=== PATIENT | female | born 1980 | race Caucasian/White ===

== ENCOUNTER 2020-04-08 01:03 | Outpatient (CLI) | payer BC, SELFPAY ==
[2020-04-08 20:05] LABS: SARS-CoV-2 RNA PCR Negative
== END 2020-04-08 01:04 | disposition home or self-care (01) ==
LOC: ANHCOVIDDT 01:04
PROVIDERS: PCP Physician Assistant; Visit Provider Orthopaedic Surgery
DX: Z01.812 Encounter for preprocedural laboratory examination (principal); Z11.59 Encounter for screening for other viral diseases
CPT/HCPCS: 87635; C9803; U0003

== ENCOUNTER 2020-04-11 01:32 | Day surgery (SDC) | payer BC, SELFPAY ==
[2020-03-29 12:23] VITALS: BMI 31.8
--- NOTE | 2020-04-10 13:17 | WPDANESEPP ---
Anes - Eval Pre Procedure Procedure: Operation Date: 04/11/20 07:30 Proposed Procedures p Right Hallux Cheilectomy - Jam Plummer MD Date/Time: 04/10/20 13:17 Pre Op Diagnosis: Rigth Hallux Rigidus Patient Data Age: 39 Gender: F Height: 1.6 m Weight: 81.65 kg Allergies Allergy/AdvReac Type Severity Reaction Status Date / Time aspirin Allergy Mild Nausea and Verified 03/29/20 12:24 Vomiting Penicillins Allergy Unknown UNKNOWN Verified 03/29/20 12:24 REACTION- OCCURED CHILD Home Medications Medication Instructions Recorded Confirmed Type ascorbic acid-collagen [Collagen 1 cap PO DAILY 03/29/20 03/29/20 History Plus Vitamin C] pediatric multivitamin no.30 1 tablet PO DAILY 03/29/20 03/29/20 History [Gummies Children Multivitamin] Patient hx anesthesia problems: none Family hx anesthesia problems: none PMFSH Past Medical History Medical History Anxiety Asthma Bilateral knee pain Chronic headaches Depression Hallux rigidus of right foot Patella-femoral syndrome Smoking history Surgical History Surgical History History of carpal tunnel release Family History Family History Unknown Hypertension Arthritis Cancer Social History Social History Smoking packs per day: 2 Smoking cigarettes per day: 40.0 Years smoked: 26 Smoking pack-years: 52.00 Smoking status: Former smoker Tobacco type: e-cigarettes/vaping Additional smoking assessment comments: QUIT 1.5 YEARS AGO Alcohol intake: current Substance use type: marijuana Spiritual care concerns: No Exam Day of Procedure 04/10/20 13:17
[2020-04-11] VITALS (9 sets, daily range): BP systolic 103–129; BP diastolic 59–87; PULSE 67–90; RESP 8–16; TEMP 36.3–36.8; O2SAT 99–100
--- NOTE | ~2020-04-11 | XR_ITS ---
EXAMINATION: XR surgery orthopedic EXAM DATE: 04/11/2020 08:32 INDICATION: Hallux surgery. TECHNIQUE: Fluoroscopy used during XR surgery orthopedic performed by Dr. Jam Plummer MD. The DAP for this procedure was 0.6 cGycm2. FINDINGS: Frontal and lateral projections of the 1st digit were captured. There is some subcutaneous gas, probably some gas within the 1st MTP joint. Alignment is anatomic. Correlate with procedure no te. IMPRESSION: Fluoroscopy used during XR surgery orthopedic. Reviewed, dictated and finalized at location A.
--- NOTE | 2020-04-11 07:00 | WPDHPUPDATE1 ---
History and Physical Update Update Date/Time: 04/11/20 07:00 History and Physical has been reviewed, including an updated exam of the patient. There are NO changes in the patient's condition. Covid test negative. Risks, benefits, and alternatives have been discussed and questions answered. Patient agrees to proceed with procedure.
--- NOTE | 2020-04-11 07:01 | WPDANESEFPP ---
Anes - Eval Final PreProcedure Day of Procedure 04/11/20 07:01 Patient weight: obese Heart: regular rate and rhythm Lungs: clear to auscultation and normal air movement Airway: Mallampati scale class II Neurological: alert and oriented Last oral intake: >/= 8 hours ASA classification: III Emergent: no Anesthetic plan: proceed Anesthesia type and monitoring: general LMA and standard monitoring Informed Consent: The patient's anesthetic plan and its attendant risks and benefits were discussed with the patient/family/POA. Questions were solicited and answers provided to the satisfaction of the patient/family/POA.
[2020-04-11] MEDS: LACTATED RINGERS 1,000 ML 30 ML IV CONT (07:10)
[2020-04-11] MEDS: ACETAMINOPHEN 500 MG TABLET 1000 MG PO (07:15)
[2020-04-11] MEDS: KETOROLAC 15 MG/ML VIAL (*BKC) IV PUSH (07:15)
[2020-04-11] MEDS: ceFAZolin 2 GM/D5W 50 ML 2 GM/50 ML BAG IVPB (07:27)
--- NOTE | 2020-04-11 08:36 | P.OP_ITS ---
Procedure Note - Detailed Date of procedure: 04/11/20 Pre-op diagnosis: Rigth Hallux Rigidus Post-op diagnosis: same Procedure performed: RT hallux cheilectomy Description of procedure: Indications: Patient is a 39yo woman with right hallux rigidus. Severe pain the hallux metatarsophalangeal joint area, worse with weight-bearing. Patient has failed conservative treatment with custom inserts, accommodative shoes, activity modifications anti-inflammatory medication and injections. Presents now for operative treatment. What was done: Patient identified in the preoperative holding. Informed consent given. Operative extremity marked. Patient received intravenous antibiotics. Patient brought to the operating room where underwent general anesthetic by anesthesia team. Positioned supine on operating room table. Time-out performed confirming the patient, site of the surgery and the plan. Right foot prepped and draped in the usual sterile surgical fashion using a ChloraPrep skin solution. Foot was exsanguinated with an Esmarch bandage and a calf tourniquet was inflated to 225 mmHg. Longitudinal incision made over the dorsum of the hallux metatarsophalangeal joint with a 15 blade knife. Hemostasis controlled with electrocautery. Dorsal capsulotomy performed and reflected off the medial lateral aspect of the distal 1st metatarsal. Joint was exposed and large dorsal osteophyte as well as erosion of the dorsal portion of the metatarsal articular surface noted. Osteotomes used to resect the exostosis as well as the degenerative portions of the metatarsal head. Adequate resection level checked with image intensification. Wound thoroughly irrigated antibiotic solution. Dorsal osteophyte from the proximal phalanx also removed with rongeur. Bone wax used to cover the exposed bone surface. Capsulotomy repaired with 2 Vicryl interrupted suture. Subcutaneous tissue repaired with 3 0 Monocryl interrupted suture and skin repaired with 4 O nylon running suture. Sterile dressing applied. Tourniquet released and good capillary refill in all toes ensured. The patient was then woken from anesthesia, extubated and taken to the recovery room in stable condition. All sponge, needle, instrument counts were correct at the end of the case. Anesthesia: GLMA Surgeon: Jam Plummer MD Thermograph Operator: personal banking assistant Estimated blood loss (mL): 5 Tourniquet time (min): 35 Drains: No Packing: No Pathology: none sent Complications: None Condition: stable Disposition: PACU
== END 2020-04-11 10:30 | disposition home or self-care (01) ==
PROVIDERS: Visit Provider Orthopaedic Surgery
PROC: (CPT 28289; principal; 2020-04-11 07:30)
DX: M20.21 Hallux rigidus, right foot (principal); Z87.891 Personal history of nicotine dependence
CPT/HCPCS: 28289; A9270; J0690; J1885; J2250; J3010; J7120

== ENCOUNTER → 2020-08-18 11:49 | Outpatient (CLI) | payer BC, SELFPAY ==
--- NOTE | ~2020-08-18 | MR_ITS ---
EXAMINATION: MR knee LT wo con DATE: 08/18/2020 12:59 INDICATION: Left knee pain TECHNIQUE: Magnetic resonance imaging (MRI) of the left knee was performed without intravenous contra st. Sequences included coronal PD-weighted FSE, coronal PD-weighted FS FSE, sagittal T2-weighted FSE , sagittal PD-weighted FS FSE and axial PD weighted fat saturated FSE. COMPARISON: None. FINDINGS: Medial compartment: Medial meniscus is normal. At the lateral side of the anterior most weightbearing medial femoral cond yle there is a small region with mild irregularity to the surface of both the cartilage as well as th e underlying articular cortex. There is curvilinear low signal intensity underlying the articular cor vasquez with minimal surrounding edema. Differential would include a chronic osteochondral lesion, healin g subacute impaction or stress fracture. More reactive bone changes related to overlying high-grade c hondromalacia. Remaining cartilage in the medial compartment appears relatively preserved. Lateral compartment: Lateral meniscus is normal. Articular cartilage is normal. Patellofemoral compartment: Partial-thickness cartilage loss and fissuring at the medial patellar facet with tiny focus of underl deshaun subarticular edema at the central aspect of the medial patellar facet. Trochlear cartilage is no rmal. Ligaments and tendons: Anterior and posterior cruciate ligaments are normal. The medial collateral ligament and fibular reggie ateral ligament complex are normal. The extensor mechanism is normal. The visualized medial and later al hamstring tendons as well as the iliotibial band are normal. Fluid: Physiologic amount of fluid in the joint space. No loose osteochondral bodies identified. There is a ganglion cyst which extends approximately 3.5 cm proximally along the posterior margin of the medial head of the gastrocnemius which measures up to 12 x 9 mm in maximal orthogonal dimensions. Osseous/other: Signal intensity bone islands at the posterior weightbearing lateral femoral condyle and at the anter ior aspect of the lateral tibial plateau. No pathologic marrow replacing process. IMPRESSION: 1. Small region at the anterolateral aspect of the weightbearing medial femoral condyle demonstrating cartilage and cortical irregularity and edema and linear sclerosis with differential including react frank bone changes related to overlying high-grade chondromalacia, an osteochondral lesion or healing s ubacute impaction or stress fracture. 2. 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 FILLER IMPRESSION: 1. Small region at the anterolateral aspect of the weightbearing medial femoral condyle demonstrating cartilage and cortical irregularity and edema and linear sclerosis with differential including reactive bone changes related to overlyi ng high-grade chondromalacia, an osteochondral lesion or healing subacute impac tion or stress fracture. 2. 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
== END ==
PROVIDERS: Visit Provider Nurse Practitioner Family
DX: M25.562 Pain in left knee (principal)
CPT/HCPCS: 73721

== ENCOUNTER 2021-04-02 00:26 | Emergency (ER) | payer BC, SELFPAY ==
--- NOTE | ~2021-04-02 | XR_ITS ---
EXAMINATION: XR foot RT min 3V DATE: 04/02/2021 01:00 INDICATION: Right foot pain TECHNIQUE: Dorsoplantar, lateral, and 2 oblique views of the right foot were obtained. COMPARISON: 04/13/2020 FINDINGS: There is a subtle lucency in the medial aspect of the navicular bone with adjacent soft tis charanjit swelling. Bone alignment is normal. A plantar calcaneal enthesophyte is noted. IMPRESSION: 1. Subtle lucency in the medial aspect of the navicular suggestive of nondisplaced fracture. Reviewed, dictated and finalized at location A. IMPRESSION: 1. Subtle lucency in the medial aspect of the navicular suggestive of nondispla elder fracture.
--- NOTE | ~2021-04-02 | XR_ITS ---
EXAMINATION: XR ankle RT min 3V INDICATION: Right ankle pain TECHNIQUE: Four views of the right ankle are obtained. COMPARISON: None available FINDINGS: There is ankle soft tissue swelling. Bone alignment is normal. There is no fracture. A plan tar calcaneal enthesophyte is noted. IMPRESSION: 1. Ankle soft tissue swelling without acute osseous abnormality. Reviewed, dictated and finalized at location A.
[2021-04-02 00:38] VITALS: BP 154/80; PULSE 96; RESP 18; TEMP 36.6; O2SAT 98
--- NOTE | 2021-04-02 00:45 | ED.GENADULT ---
HPI - General Adult General Chief complaint: Extremity Injury, Lower Stated complaint: sprained ankle Time Seen by Provider: 04/02/21 00:35 History of Present Illness HPI narrative: Patient 40-year-old female presents emerged from with chief complaint of right ankle and right foot pain. Patient reports that she was walking down the steps fell twisted her ankle and reports that she has pain on the medial and lateral malleolus as well as the base the fifth metatarsal. Patient states she wrapped it with an Kendall wrap but reports it hurts whenever she tries to put pressure on her foot and she try to go to work this evening and was unable to put weight on her ankle. Patient states that she did not injure herself anywhere else denies loss of consciousness denies head injury. Patient denies any laceration. Related Data Home Medications Medication Instructions Recorded Confirmed Collagen Plus Vitamin C 1 cap PO DAILY 03/29/20 08/09/20 Gummies Children Multivitamin 1 tablet PO DAILY 03/29/20 08/09/20 ibuprofen 800 mg tablet 800 mg PO Q6H 04/29/20 08/09/20 Allergies Allergy/AdvReac Type Severity Reaction Status Date / Time aspirin Allergy Mild Nausea and Verified 08/18/20 11:48 Vomiting Penicillins Allergy Unknown UNKNOWN Verified 08/18/20 11:48 REACTION- OCCURED CHILD Review of Systems Review of Systems: Narrative: A 10 system review of systems was completed on the patient and is negative except for what is stated in the HPI. Nursing and ancillary documentation was reviewed. [facility] Past Medical History Medical History Acute pain of left knee Anxiety Asthma Bilateral knee pain Chronic headaches Depression Hallux rigidus of right foot Patella-femoral syndrome Smoking history Tear meniscus knee Surgical History Surgical History History of carpal tunnel release Family History Family History Unknown Hypertension Arthritis Cancer Social History Social History Smoking packs per day: 2 Smoking cigarettes per day: 40.0 Years smoked: 26 Smoking pack-years: 52.00 Smoking status: Current every day smoker Tobacco type: e-cigarettes/vaping Additional smoking assessment comments: QUIT 1.5 YEARS AGO Alcohol intake: current Alcohol use details: Occasional Substance use type: marijuana Spiritual care concerns: No Exam Narrative: Exam Narrative: GENERAL: Well-appearing, well-nourished, and in no acute distress. HEAD: Normocephalic, atraumatic. EYES: PERRLA and EOMI. ENT: Nares clear, no rhinorrhea or epistaxis. Mucous membranes moist. NECK: Supple. CHEST: Clear to auscultation. No respiratory distress. HEART: Regular rate and rhythm. No murmur heard. Normal peripheral pulses. ABDOMEN: Soft, nontender, nondistended, normal active bowel sounds. EXTREMITIES: Normal range of motion. No edema. There is tenderness to palpation in the medial and lateral malleolus as well as the base of the fifth metatarsal of the right foot SKIN: Warm, dry, no rash. NEURO: No focal deficits. Alert and oriented x3. PSYCH: Normal mood and affect. Course Vital Signs Vital signs: Vital Signs Temperature 36.6 C 04/02/21 00:38 Pulse Rate 96 04/02/21 00:38 Respiratory Rate 18 04/02/21 00:38 Blood Pressure 154/80 H 04/02/21 00:38 Pulse Oximetry 98 04/02/21 00:38 Temperature 36.6 C 04/02/21 00:38 Pulse Rate 96 04/02/21 00:38 Respiratory Rate 18 04/02/21 00:38 Blood Pressure 154/80 H 04/02/21 00:38 Pulse Oximetry 98 04/02/21 00:38 Medical Decision Making Vital Signs Vital Signs: Vital Signs Temperature 36.6 C 04/02/21 00:38 Pulse Rate 96 04/02/21 00:38 Respiratory Rate 18 04/02/21 00:38 Blood Pres
[2021-04-02] MEDS: IBUPROFEN 400 MG TABLET 800 MG PO (01:37)
== END 2021-04-02 01:36 | disposition home or self-care (01) ==
PROVIDERS: Emergency Provider Emergency Medicine
DX: S93.401A Sprain of unspecified ligament of right ankle, initial encounter (principal); S93.601A Unspecified sprain of right foot, initial encounter; J45.909 Unspecified asthma, uncomplicated; Z87.891 Personal history of nicotine dependence; W10.9XXA Fall (on) (from) unspecified stairs and steps, initial encounter; X50.9XXA Other and unspecified overexertion or strenuous movements or postures, initial encounter
CPT/HCPCS: 73610; 73630; 99283; A9270

== ENCOUNTER → 2023-09-13 11:19 | Outpatient (CLI) | payer BC, SELFPAY ==
--- NOTE | ~2023-09-13 | US_ITS ---
EXAMINATION: US thyroid DATE: 09/13/2023 11:42 INDICATION: Thyroid nodules TECHNIQUE: Multiple ultrasound images of the thyroid were obtained. COMPARISON: None. FINDINGS: The right thyroid lobe measures 5.2 x 2.1 x 2.5 cm. The left thyroid lobe measures 5.5 x 1.5 x 1.8 c m. 1.3 cm mixed solid and cystic nodule with hypoechoic solid component which is wider than tall wit h smooth margins but with internal echogenic foci (TI-RADS 4, moderately suspicious , FNA if >=1.5 cm , annual followup is >=1 cm) in the inferior left thyroid. There is a 9 mm TI RADS 4 nodule with jose lar imaging features at the inferior right thyroid lobe. 2.0 cm predominantly cystic anechoic nodule with peripheral a couple small peripheral hypoechoic solid components and echogenic focus with plane captain ior comet tailing consistent with inspissated colloid (TI-RADS 1, benign, no FNA recommended). Additi onal TI RADS 1 anechoic cystic nodules measuring 4 mm at the inferior left thyroid and 10 mm at the i nferior left thyroid. Finally in the right thyroid there is a 6 mm TI RADS 4 nodule at the mid right thyroid with peripheral rim shadowing calcification which obscures the more posterior portion of the nodule. IMPRESSION: 1. Multinodular goiter with a few TI RADS 4 nodules, the largest measuring 1.3 cm for which annual ul trasound follow-up would be recommended. Reviewed, dictated and finalized at location A. D/OSTOMY CLINICAL NURSE SPECIALIST IMPRESSION: 1. Multinodular goiter with a few TI RADS 4 nodules, the largest measuring 1.3 cm for which annual ultrasound follow-up would be recommended.
== END ==
PROVIDERS: PCP Obstetrics & Gynecology; Visit Provider Obstetrics & Gynecology
DX: E04.2 Nontoxic multinodular goiter (principal)
CPT/HCPCS: 76536

== ENCOUNTER → 2023-10-24 09:49 | Outpatient (CLI) | payer BC, SELFPAY ==
--- NOTE | ~2023-10-24 | MM_ITS ---
EXAMINATION: MM screening fareed BI w marley HISTORY: Screening mammogram TECHNIQUE: Craniocaudal and mediolateral oblique 3-D tomosynthesis images were obtained and synthetic 2-D images were generated. CAD analysis was submitted and interpreted. COMPARISON: No prior mammogram is available for comparison at this institution. BREAST PARENCHYMAL COMPOSITION: There are scattered areas of fibroglandular density. FINDINGS: There is no evidence of suspicious mass, calcification, or architectural distortion to sugg est malignancy in either breast. There has been no suspicious interval change. IMPRESSION: 1. No mammographic evidence of malignancy. 2. Recommend routine screening mammography in one year. BI-RADS Category 1: Negative Reviewed, dictated and finalized at location A. CIATE APPLICATION DEVELOPER
== END ==
PROVIDERS: PCP Obstetrics & Gynecology; Visit Provider Obstetrics & Gynecology
DX: Z12.31 Encounter for screening mammogram for malignant neoplasm of breast (principal)
CPT/HCPCS: 77063; 77067

== ENCOUNTER 2024-10-26 09:49 | Outpatient (CLI) | payer BC, SELFPAY ==
--- NOTE | ~2024-10-26 | MM_ITS ---
EXAMINATION: MM screening fareed BI w marley HISTORY: Screening TECHNIQUE: Craniocaudal and mediolateral oblique 3-D tomosynthesis images were obtained and synthetic 2-D images were generated. CAD analysis was submitted and interpreted. COMPARISON: No prior mammogram is available for comparison at this institution. BREAST PARENCHYMAL COMPOSITION: Not dense: There are scattered areas of fibroglandular density. FINDINGS: There is no evidence of suspicious mass, calcification, or architectural distortion to sugg est malignancy in either breast. There has been no suspicious interval change. IMPRESSION: 1. No mammographic evidence of malignancy. 2. Recommend routine screening mammography in one year. BI-RADS Category 1: Negative Reviewed, dictated and finalized at location B. SM TUTOR
== END 2024-10-26 09:50 | disposition home or self-care (01) ==
LOC: MICIMG 09:50
PROVIDERS: PCP Obstetrics & Gynecology; Visit Provider Obstetrics & Gynecology
DX: Z12.31 Encounter for screening mammogram for malignant neoplasm of breast (principal)
CPT/HCPCS: 77063; 77067

== ENCOUNTER 2024-12-12 11:32 | Outpatient (CLI) | payer BC, SELFPAY ==
--- OUTSIDE RECORDS SUMMARY | 2024-12-12 11:36 | XMS_ITS | Data Portability ---
Author Organization [facility] [place] Address [address] [place] [address] Care Team Providers Care Fur Comber Name Role Phone KALEEBREE Primary Care Provider Assessment Encounter Date Assessment Date Assessment LastModified by Organization Details LastModified Time 01/07/2023 01/07/2023 Pt also mentioned she is struggling to lose weight. Referred to Dr Alvarez. [email or web address] Not available 01/07/2023 16:42:04 Plan of Treatment Reminders Order Date Submit Date Provider Last Modified By Organization Details Last Modified Time Details Appointments None recorded. Lab HbA1c (hemoglobin A1c), blood 2022 023 [facility] (Lab), [address] [facility], [place], [address], 3 04:54:14 Referral None recorded. Procedures None recorded. Surgeries None recorded. Imaging None recorded. Medication Orders phentermine 15 mg capsule 2022 023 [facility]/Pharmacy #[id number], [address], [place], [address], 3 11:04:04 topiramate 50 mg tablet [address]/Pharmacy #[id number], [address], [place], [address], 3 12:52:52 Patient TargetsNo targets recorded. Patient InstructionsNo instructions recorded. Reason for Referral None Reported. Results Created Date Observation Date Name Description Value Unit Range Abnormal Flag Note LastModifiedBy Organization Detail LastModifiedTime 01/08/20 23 01/07/2023 CT/GC (ALBIN) , SWAB chlamydia trachomatis, PCR Negati ve negati ve Not Available [facility] (Lab) [address] [facility], [place], [address], 01/08/2023 21:19:44 01/08/20 23 01/07/2023 CT/GC (ALBIN) , SWAB neisseria gonorrhoeae, PCR Negati ve negati ve Not Available [facility] (Lab) [address] [facility], [place], [address], 01/08/2023 21:19:44 01/08/20 23 01/07/2023 VAGIN ITIS/ VAGIN OSIS, DNA PROBE ligia sp. detection, direct probe Negati ve negati ve Not Available [facility] (Lab) [address] [place], [address], 01/08/2023 21:19:44 01/08/20 23 01/07/2023 VAGIN ITIS/ VAGIN OSIS, DNA PROBE gardnerella vag. detection, direct probe Positi ve negati ve abnormal Not Available [facility] (Lab) [address] [facility], [place], [address], 01/08/2023 21:19:44 01/08/20 23 01/07/2023 VAGIN ITIS/ VAGIN OSIS, DNA PROBE trichomonas vag. detection, direct probe Negati ve negati ve Not Available [facility] (Lab) [address] [place], [address], 01/08/2023 21:19:44 03/07/20 23 03/07/2023 HEMOG LOBIN A1C hemoglobin A1C 5.3 % 0-5.6 The Ameri can [employer] [place] [employer] i[employer] n recom mends that a prima ry goal of thera py mart d be a HBA1C of < 7% and that physi cians shoul d reeva luate the treat ment regim en in patie nts with HBA1C value s consi stent ly > 8%. <5.7% Trina l 5.7 - 6.4% Incre ased risk for diabe [place] >=6.5 % Diagn ostic of diabe [place] <7.0% Goal of thera py >8.0% Actio n sugge sted Not Available [facility] (Lab) [address], [place], [address], 03/08/2023 04:54:13 Result Notes None recorded. Procedures Surgical History Date Name Laterality Status Provider Name and Address Organization Details Recorded Time 0 procedure on foot completed [facility] 01/07/2023 17:31:18 8 excision of cyst of epididymis completed [facility] 01/07/2023 17:32:29 [address] surgery completed [facility] 01/07/2023 17:30:23 0 Carpal tunnel surgery completed [facility] 01/07/2023 17:30:[address] [facility] 01/07/2023 17:15:[address] [facility] 03/05/2023 10:04:31 Imaging Results None recorded. Procedure Notes None recorded. Medical Equipment None Reported. Allergies Allergen ID Allergen Name Allergen Category Reaction Reaction Severity Criticality Documentation Date Start Date Code Code System Note Provider Name and Address Organization Details Recorded Time Product containin g penicilli n (product) medicatio n Not available Not available Not available 01/07/2023 82721 8001 SNOMED Gr[facility] 3 10:04:42 aspirin medicatio n Not available Not available Not available 01/07/2023 1191 RxNorm Gr[facility] 3 10:04:46 26213 Jennifer Aspirin medicatio n nausea Not available Not available 03/05/2023 84932 8 RxNorm Gracie Pathak [facility] 3 10:03:47 86735 Penicilli n Not available Not available Not available Not available 03/05/2023 81355 RxNorm Gracie Pathak [facility] 3 10:03:47 Medications Name Sig Start Date Stop Date Status Note LastModified by Organization Details LastModified Time meloxicam 15 mg tablet active Not Available Not Available Not Available phentermine 15 mg capsule TAKE 1 CAPSULE BY MOUTH EVERY DAY 2022 active Not Available Not Available Not Avai lable metronidazole 500 mg tablet TAKE 1 TABLET BY MOUTH TWICE A DAY FOR 7 DAYS active Not Available Not Available No t Available meloxicam 7.5 mg tablet active Not Available Not Available No t Available methylprednisol one 4 mg tablets in a dose pack active Not Available Not Available No t Available topiramate 50 mg tablet TAKE 1 TABLET BY MOUTH TWICE A DAY 2022 active Not Available Not Available Not Avai lable meloxicam active Not Available Not Daija ilable Not Available Metronidazole (Topical) active Not Available Not Available No t Available Seglentis 44 mg-56 mg tablet TAKE 1 TABLET BY MOUTH TWICE A DAY NEEDED FOR PAIN active Not Available Not Available No t Available Vitals Date Recorded Body height Body mass index (BMI) Body weight Systolic blood pressure Diastolic blood pressure Provider Name and Address Organization Details Last Updated DateTime 01/07/2023 160.02 cm 31.4 kg/m2 16484.85 g 130 mm[Hg] 88 mm[Hg] Awilda Raymond [facility] 3 17:07:09 Date Recorded Body height Body mass index (BMI) Body weight Systolic blood pressure Diastolic blood pressure Provider Name and Address Organization Details Last Updated DateTime 03/05/2023 160.02 cm 31.2 kg/m2 48092.26 g 119 mm[Hg] 74 mm[Hg] Gracie Pathak [facility] 3 10:15:34 Social History Question Answer Notes LastModified by Organizat ion Details LastModified Time Tobacco Smoking Status Current Every Day Smoker Gracie Zo [facility] 03/05/2023 10:05:52 What Is Your Level Of Alcohol Consumption? Occasional [email or web address] Information not available 01/07/2023 How Many Years Have You Consumed Alcohol? 20 Information not available 03/05/2023 Are You Blind Or Do You Have Difficulty Seeing? No [email or web address] Information not available 01/07/2023 What Is Your Level Of Caffeine Consumption? Moderate Information not available 03/05/2023 In The 14 Days Before Symptom Onset, Have You Had Close Contact With A Laboratory-confir med COVID-19 While That Case Was Ill? No Information not available 01/07/2023 In The 14 Days Before Symptom Onset, Have You Had Close Contact With A Person Who Is Under Investigation For COVID-19 While That Person Was Ill? No Information not available 01/07/2023 Have You Been To An Area Known To Be High Risk For COVID-19? No [email or web address] Information not available 01/07/2023 Are You Deaf Or Do You Have Serious Difficulty Hearing? No [email or web address] Information not available 01/07/2023 What Type Of Diet Are You Following? REGULAR [email or web address] Information not available 01/07/2023 Do You Or Have You Ever Used E-cigarettes Or Vape? Current User Of Electronic Cigarettes Vape, Daily Information not available 03/05/2023 What Is The Highest Grade Or Level Of School You Have Completed Or The Highest Degree You Have Received? 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 Yes Information not available 03/05/2023 Have You Ever Been Counseled For Unhealthy Alcohol Use? No Information not available 03/05/2023 Do You Use Protection During Sex? Usually Information not available 03/05/2023 Do You Use Your Seat Belt Or Car Seat Routinely? Yes [email or web address] Information not available 01/07/2023 Do You Have Smoke And Carbon Monoxide Detectors In Your Home? Yes [email or web address] Information not available 01/07/2023 Do You Feel Stressed (tense, Restless, Nervous, Or Anxious, Or Unable To Sleep At Night)? [id number] Information not available 03/05/2023 Do You Use Any Illicit Or Recreational Drugs? No [email or web address] Information not available 01/07/2023 Do You Use Sunscreen Routinely? No Information not available 03/05/2023 Has Tobacco Cessation Counseling Been Provided? No Information not available 03/05/2023 Have You Used IV Drugs? No Information not available 03/05/2023 Do You Or Have You Ever Used Any Other Forms Of Tobacco Or Nicotine? Yes Information not available 03/05/2023 Sex: Unknown Functional Status Question Answer Note LastModified by Organizat ion Details LastModified Time Do you have difficulty walking or climbing stairs? No Information not available 03/05/2023 Are you able to walk? YESWOREST Information not available 03/05/2023 Are you able to care for yourself? Yes Information not available 03/05/2023 Do you have difficulty dressing or bathing? No Information not available 03/05/2023 What is your exercise level? Moderate Information not available 03/05/2023 Mental Status None recorded. Family History Relationship Description Onset Age of this Age Resolved Age Notes LastModified by Organization Details LastModified Time Mother Asthma [email or web address] Not available 01/07/2023 17:22:32 Mother Anxiety disorder [email or web address] Not available 01/07 17:22:44 Mother Depressive disorder [email or web address] Not available 01/07 17:23:02 Mother Malignant tumor of ovary [email or web address] Not available 01/07 17:26:13 Mother Bipolar disorder Not available 2022 10:04:08 Mother Schizophreni a Not available 2022 10:04:08 Mother Mental disorder Not available 2022 10:04:08 Sister Asthma Not available 03/05/2023 10:04:08 Sister Anxiety disorder Not available 2022 10:04:08 Sister Depressive disorder Not available 2022 10:04:08 Sister Malignant tumor of ovary [email or web address] Not available 01/07 17:26:13 Sister Bipolar disorder Not available 2022 10:04:08 Sister Schizophreni a Not available 2022 10:04:08 Paternal Aunt Malignant tumor of lung [email or web address] Not available 01/07 17:26:59 Paternal Aunt Malignant tumor of breast [email or web address] Not available 01/07 17:27:29 Paternal Grandmother Malignant tumor of lung [email or web address] Not available 01/07 17:26:59 Paternal Grandmother Malignant tumor of breast Not available 01/07 17:27:29 Paternal Grandfather Depressive disorder Not available 2022 10:04:08 Medical History Condition Response Allergies (Food, seasonal, environmental ) Y Other N Drug/Latex Allergies/Reactions N Blood Transfusion N Breast Cancer N Dermatologic Disorders N Lung Disease N Defects or Inherited Disease N Breast Problem N Gestational Diabetes N Hematologic disorders N Anesthesia Complications N History of STI Y Deep Vein Thrombosis N Polycystic ovary syndrome N Anxiety Disorder Y Autoimmune disease N Arthritis N Polyps N Infertility N Acid Reflux (GERD) N History of abnormal pap Y Cancer N Varicosities N Stroke N Neurologic/Epilepsy N Endometriosis N High Cholesterol N Fibromyalgia N Headaches Y Kidney Disease N Heart Problems N Thyroid Problems N Kidney or Bladder Problems N GI Problems N Eating Disorder N Anemia N Art (IVF or FET) N Psychiatric Illness N Ovarian Cancer N Diabetes N Pulmonary (TB, Asthma) N Hepatitis/Liver Disease N No Past Medical History N Eczema N Urinary Tract Infection N Abuse/Domestic Violence N Asthma Y Trauma/Violence N Depression/ depression Y Heart Disease N Pre-Eclampsia N Hypertension N Osteoporosis N Thrombophilias N Gynecological History Statement/Question Response Abnormal Pap Y Date of Last Mammogram Date of LMP 12/24/2022 N Was last menstrual period normal Y STIs/STDs Y Colposcopy 09/16/1996 Duration of Flow (days) 3 Current Control Method IUD Age at First Child 15 Sexually Active? Y Age of first menstrual cycle 10 Date of Last Pap Smear Sexual Problems? N LMP Approximate N Obstetrics History GPAL:G 8 P 7 0 1 7 Type Value Full Term 7 Spontaneous 1 Living 7 Total 8 Past Encounters Encounter ID Performer Location Encounter Start Date Encounter Closed Date Diagnosis/Indication Diagnosis SNOMED-CT Code Diagnosis ICD10 Code Diagnosis Note [id number] Awilda Raymond [place] [address] [address] 01/07/2023 16:03:36 01/07/2023 16:45:09 Vaginitis 73654175 N76.0 Discussed use of mild soap like dove or ivory, cotton underwear w/out dye, hypoallerg enic detergent, wipe from front to back, avoid tub baths, keep perineum clean and dry, d/c use of baby wipes. Encouraged daily intake of yogurt or womens health probiotic. Internal and external affirm collected along with STD screen. [id number] Leon Hernandez MD [place] [address] [address] 03/05/2023 09:45:01 03/05/2023 13:07:19 Obesity 708901313 E66.9 This patient is a [id number] d female who presents for weight management . We took a very thorough history. We talked about some of her goals. Talked about some of her challenges . We talked about some of her previous efforts in weight loss and her activity level. We talked about limitation s for activity. Talked about energy consumptio n energy expenditur e. She was given recommenda tions and some of these areas. We talked about the importance of resistance training and cardiovasc ular exercise. We talked about her medical history in its relationsh ip to excess body weight. We talked about treatment options. We talked about the evaluation that is appropriat e for beginning weight management . We talked about her diet and our dietitian. We agreed to a dietitian consult. We agreed to a sleep study. We agreed to metabolic testing. We performed body compositio n testing today. We reviewed those results and talked about their significan ce. We spent over 1 hour together. More than 50% was counseling . We agreed to come together in 2 weeks and initiate treatment. agreed to sleep study and hemoglobin A1c. Will see dietitian. Elgin gonsalez metabolism testing. To start phentermin e and topiramate . Will return in 1 month. Health Concerns Section Related Observation LastModified by Organization Detai ls LastModified Time None Recorded Concern Status LastModified by Organization Details LastModified Time None Recorded Advance Directives Directive None Recorded Payers Encounter Date Sequence Insurance Name Policy Number Policy Del Valle Covered Member ID Del Valle Member ID Guarantor Name 01/07/2023 1 [facility]: (PPO) [id number] Davril E Hay [id number] Davril E Hay 03/05/2023 1 [facility]: (PPO) [id number] Davril E Hay [id number] Davril E Hay Notes Date Note Type Note Provider Name and Address Organization Details Recorded Time 01/07/2023 text/html Increased vagina l discharge x 2 weeks. Clear, no odor, itching, or irritation.Was seen in urgent care for GI but and was also treated with flagyl for discharge. Finished prescription a couple days ago.Sexually active. Awilda Raymond [facility], [facility] 01/07/2023 17:08:23 03/05/2023 text/html This patient is a 38 for female presents for obesity. She has problems with her self image. She has decreased energy. She denies any joint pain in her hips or knees. She has gained 45 lb over the last 5 years. 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 She has chronic fatigue. She has not ever been on a weight loss program used any weight loss drugs. She does not eat breakfast. She has not drink any sugar sweetened beverages. She is up and or E at night. Boredom and eating out are problems for her with respect to food. She does not have any food cravings. Exercise history- she does some cardiovascular exercise. She has a home gym but has use did sparingly lately. Sleep- hard to get a sense of her sleep situation. At least as far as the quality of sleep. She is willing to do sleep study. Past medical history -plantar fasciitis and anxiety surgical history-negative social history -she is a current smoker family history -she has a mother with obesity and diabetes. There is history of stroke bipolar or, alcoholism, anxiety and depression. Mood- seems reasonable Leon Hernandez MD [address], [place], [address], [place] - [facility] 03/05/2023 12:58:27 OBGyn Episode Ob Episode Information Episode Created Date Number of Fetuses Patient Bloodtype Patient rh Status Prepregnancy Weight lbs Domestic Partner Domestic Partner Phone Father Name Supervisor Uranium Processing Status 01/08/20 23 1 CLOSED Fetus Data First Name Last Name Admitted to NICU Weight (g) Sex Living Outcome Pediatric Complications Fetus ID Race Codes Race Delivery Type 3259.96 5704 F Full Term [id number] Vaginal Delivery Chandler Calculation Initial Chandler Date Initial Exam Date Initial Exam Provider Initial Ultrasound Date Last Menstrual Period Date Ultra Sound Weeks Gestation 0 Eighteen To Twenty Week Chandler Update Ultra Sound Date Fundal Height At Umbil Quickening Date Ultra Sound Latest Weeks Gestation Final Chandler Confirmed By Final Chandler Confirmed Date Final Chandler Date Ultra Sound Latest Days Gestation 0 0 Menstrual History Last Menstrual Date Menses Monthly On Bcp Conception Prior Menses Frequency Hcg Plus Date Menarche Onset Age Delivery Information Delivery Date Delivery Type Labor Anesthesia Weeks Gestation Incision Type Labor Labor Length Hrs Delivered By Post Complications Tubal Sterilization Discharge Date Comments 5 Discharge Information Feeding Method Contraceptive Method Maternal HG B and HCT Levels Ob Episode Information Episode Created Date Number of Fetuses Patient Bloodtype Patient rh Status Prepregnancy Weight lbs Domestic Partner Domestic Partner Phone Father Name Supervisor Uranium Processing Status 01/08/20 23 1 CLOSED Fetus Data First Name Last Name Admitted to NICU Weight (g) Sex Living Outcome Pediatric Complications Fetus ID Race Codes Race Delivery Type , Spontane ous [id number] Chandler Calculation Initial Chandler Date Initial Exam Date Initial Exam Provider Initial Ultrasound Date Last Menstrual Period Date Ultra Sound Weeks Gestation 0 Eighteen To Twenty Week Chandler Update Ultra Sound Date Fundal Height At Umbil Quickening Date Ultra Sound Latest Weeks Gestation Final Chandler Confirmed By Final Chandler Confirmed Date Final Chandler Date Ultra Sound Latest Days Gestation 0 0 Menstrual History Last Menstrual Date Menses Monthly On Bcp Conception Prior Menses Frequency Hcg Plus Date Menarche Onset Age Delivery Information Delivery Date Delivery Type Labor Anesthesia Weeks Gestation Incision Type Labor Labor Length Hrs Delivered By Post Complications Tubal Sterilization Discharge Date Comments 3 Discharge Information Feeding Method Contraceptive Method Maternal HG B and HCT Levels Ob Episode Information Episode Created Date Number of Fetuses Patient Bloodtype Patient rh Status Prepregnancy Weight lbs Domestic Partner Domestic Partner Phone Father Name Supervisor Uranium Processing Status 01/08/20 23 1 CLOSED Fetus Data First Name Last Name Admitted to NICU Weight (g) Sex Living Outcome Pediatric Complications Fetus ID Race Codes Race Delivery Type 3486.76 1704 M Full Term [id number] Vaginal Delivery Chandler Calculation Initial Chandler Date Initial Exam Date Initial Exam Provider Initial Ultrasound Date Last Menstrual Period Date Ultra Sound Weeks Gestation 0 Eighteen To Twenty Week Chandler Update Ultra Sound Date Fundal Height At Umbil Quickening Date Ultra Sound Latest Weeks Gestation Final Chandler Confirmed By Final Chandler Confirmed Date Final Chandler Date Ultra Sound Latest Days Gestation 0 0 Menstrual History Last Menstrual Date Menses Monthly On Bcp Conception Prior Menses Frequency Hcg Plus Date Menarche Onset Age Delivery Information Delivery Date Delivery Type Labor Anesthesia Weeks Gestation Incision Type Labor Labor Length Hrs Delivered By Post Complications Tubal Sterilization Discharge Date Comments 9 Discharge Information Feeding Method Contraceptive Method Maternal HG B and HCT Levels Ob Episode Information Episode Created Date Number of Fetuses Patient Bloodtype Patient rh Status Prepregnancy Weight lbs Domestic Partner Domestic Partner Phone Father Name Supervisor Uranium Processing Status 01/08/20 23 1 CLOSED Fetus Data First Name Last Name Admitted to NICU Weight (g) Sex Living Outcome Pediatric Complications Fetus ID Race Codes Race Delivery Type 3826.95 5704 M Full Term [id number] Vaginal Delivery Chandler Calculation Initial Chandler Date Initial Exam Date Initial Exam Provider Initial Ultrasound Date Last Menstrual Period Date Ultra Sound Weeks Gestation 0 Eighteen To Twenty Week Chandler Update Ultra Sound Date Fundal Height At Umbil Quickening Date Ultra Sound Latest Weeks Gestation Final Chandler Confirmed By Final Chandler Confirmed Date Final Chandler Date Ultra Sound Latest Days Gestation 0 0 Menstrual History Last Menstrual Date Menses Monthly On Bcp Conception Prior Menses Frequency Hcg Plus Date Menarche Onset Age Delivery Information Delivery Date Delivery Type Labor Anesthesia Weeks Gestation Incision Type Labor Labor Length Hrs Delivered By Post Complications Tubal Sterilization Discharge Date Comments 4 Discharge Information Feeding Method Contraceptive Method Maternal HG B and HCT Levels Ob Episode Information Episode Created Date Number of Fetuses Patient Bloodtype Patient rh Status Prepregnancy Weight lbs Domestic Partner Domestic Partner Phone Father Name Supervisor Uranium Processing Status 01/08/20 1 CLOSED Fetus Data First Name Last Name Admitted to NICU Weight (g) Sex Living Outcome Pediatric Complications Fetus ID Race Codes Race Delivery Type 4309.12 4 M Full Term [id number] Vaginal Delivery Chandler Calculation Initial Chandler Date Initial Exam Date Initial Exam Provider Initial Ultrasound Date Last Menstrual Period Date Ultra Sound Weeks Gestation 0 Eighteen To Twenty Week Chandler Update Ultra Sound Date Fundal Height At Umbil Quickening Date Ultra Sound Latest Weeks Gestation Final Chandler Confirmed By Final Chandler Confirmed Date Final Chandler Date Ultra Sound Latest Days Gestation 0 0 Menstrual History Last Menstrual Date Menses Monthly On Bcp Conception Prior Menses Frequency Hcg Plus Date Menarche Onset Age Delivery Information Delivery Date Delivery Type Labor Anesthesia Weeks Gestation Incision Type Labor Labor Length Hrs Delivered By Post Complications Tubal Sterilization Discharge Date Comments 6 Discharge Information Feeding Method Contraceptive Method Maternal HG B and HCT Levels Ob Episode Information Episode Created Date Number of Fetuses Patient Bloodtype Patient rh Status Prepregnancy Weight lbs Domestic Partner Domestic Partner Phone Father Name Supervisor Uranium Processing Status 01/08/20 23 1 CLOSED Fetus Data First Name Last Name Admitted to NICU Weight (g) Sex Living Outcome Pediatric Complications Fetus ID Race Codes Race Delivery Type 2806.37 3704 M Full Term [id number] Vaginal Delivery Chandler Calculation Initial Chandler Date Initial Exam Date Initial Exam Provider Initial Ultrasound Date Last Menstrual Period Date Ultra Sound Weeks Gestation 0 Eighteen To Twenty Week Chandler Update Ultra Sound Date Fundal Height At Umbil Quickening Date Ultra Sound Latest Weeks Gestation Final Chandler Confirmed By Final Chandler Confirmed Date Final Chandler Date Ultra Sound Latest Days Gestation 0 0 Menstrual History Last Menstrual Date Menses Monthly On Bcp Conception Prior Menses Frequency Hcg Plus Date Menarche Onset Age Delivery Information Delivery Date Delivery Type Labor Anesthesia Weeks Gestation Incision Type Labor Labor Length Hrs Delivered By Post Complications Tubal Sterilization Discharge Date Comments 8 Discharge Information Feeding Method Contraceptive Method Maternal HG B and HCT Levels Ob Episode Information Episode Created Date Number of Fetuses Patient Bloodtype Patient rh Status Prepregnancy Weight lbs Domestic Partner Domestic Partner Phone Father Name Supervisor Uranium Processing Status 01/08/20 23 1 CLOSED Fetus Data First Name Last Name Admitted to NICU Weight (g) Sex Living Outcome Pediatric Complications Fetus ID Race Codes Race Delivery Type 3515.33 8 M Full Term [id number] Vaginal Delivery Chandler Calculation Initial Chandler Date Initial Exam Date Initial Exam Provider Initial Ultrasound Date Last Menstrual Period Date Ultra Sound Weeks Gestation 0 Eighteen To Twenty Week Chandler Update Ultra Sound Date Fundal Height At Umbil Quickening Date Ultra Sound Latest Weeks Gestation Final Chandler Confirmed By Final Chandler Confirmed Date Final Chandler Date Ultra Sound Latest Days Gestation 0 0 Menstrual History Last Menstrual Date Menses Monthly On Bcp Conception Prior Menses Frequency Hcg Plus Date Menarche Onset Age Delivery Information Delivery Date Delivery Type Labor Anesthesia Weeks Gestation Incision Type Labor Labor Length Hrs Delivered By Post Complications Tubal Sterilization Discharge Date Comments 2 Discharge Information Feeding Method Contraceptive Method Maternal HG B and HCT Levels Ob Episode Information Episode Created Date Number of Fetuses Patient Bloodtype Patient rh Status Prepregnancy Weight lbs Domestic Partner Domestic Partner Phone Father Name Supervisor Uranium Processing Status 01/08/20 23 1 CLOSED Fetus Data First Name Last Name Admitted to NICU Weight (g) Sex Living Outcome Pediatric Complications Fetus ID Race Codes Race Delivery Type 2919.77 1704 M Full Term [id number] Vaginal Delivery Chandler Calculation Initial Chandler Date Initial Exam Date Initial Exam Provider Initial Ultrasound Date Last Menstrual Period Date Ultra Sound Weeks Gestation 0 Eighteen To Twenty Week Chandler Update Ultra Sound Date Fundal Height At Umbil Quickening Date Ultra Sound Latest Weeks Gestation Final Chandler Confirmed By Final Chandler Confirmed Date Final Chandler Date Ultra Sound Latest Days Gestation 0 0 Menstrual History Last Menstrual Date Menses Monthly On Bcp Conception Prior Menses Frequency Hcg Plus Date Menarche Onset Age Delivery Information Delivery Date Delivery Type Labor Anesthesia Weeks Gestation Incision Type Labor Labor Length Hrs Delivered By Post Complications Tubal Sterilization Discharge Date Comments 1 Discharge Information Feeding Method Contraceptive Method Maternal HG B and HCT Levels
--- OUTSIDE RECORDS SUMMARY | 2024-12-12 11:36 | XMS_ITS | Referral Summary ---
Author Organization [facility] [address] [place] [id number] Care Team Providers Care Chiropractic Doctor Name Role Phone No, Physician Primary Care Provider [phone] Mariela Mercado MD Unavailable [phone] Allergies Active Allergy Reactions Criticality Noted Date Comments Aspirin Nausea only Low 03/31/2019 Codeine Itching Low 03/31/2019 Hydrocodone Itching Low 03/31/2019 severe Penicillins Unknown 03/31/2019 Hospitalized as a child Medications meloxicam (MOBIC) 7.5 mg tablet TAKE 1 TABLET TWICE DAY NEEDED FOR PAIN 11/23/2023 Active Active Problems Problem Noted Date Diagnosed Date Multinodular goiter 12/10/2023 Assessment & Plan (08/17/2024 11:54 AM TELECOMMUNICATION SYSTEMS DESIGNER): Performed a follow-up thyroid ultrasound in office today Noted overall stable thyroid nodules No compressive symptoms Follow-up in 1 year Assessment & Plan (12/10/2023 9:33 AM CDT): History of multinodular goiter diagnosed August 2023 Reviewed patient thyroid ultrasound report from August 2023. Bilateral thyroid nodules. None of these nodules meet criteria for FNA biopsy. No compressive symptoms Check TSH, include TPO antibodies Follow-up in August 2024 for a repeat thyroid ultrasound follow-up Lipoma of left thigh 03/18/2019 Overview (03/18/2019): Added automatically from request for surgery [id number] Cyst of skin 03/18/2019 Overview (03/18/2019): Added automatically from request for surgery [id number] Immunizations Immunization Administration Dates Next Due Tdap 05/05/2015 Varicella 07/08/2014 Social History Tobacco Use Types Packs/Day Years Used Date Smoking Tobacco: Some Days Cigarettes Last attempted to quit: 10/01/2018 Smokeless Tobacco: Never Tobacco Cessation:Ready to Q uit: Not Asked; Counseling Given: Not Answered Comments:vapes daily Alcohol Use Standard Drinks/Week Comments Yes 0 (1 standard drink = 0.6 oz pur e alcohol) rarely Comments Unknown Sex and Gender Information Value Date Recorded Sex Assigned at Not on file Legal Sex Female 2:48 PM CDT Gender Identity Not on file Sexual Orientation Not on file 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 on file Not on file Not on file Last Filed Vital Signs Vital Sign Reading Time Taken Comments Blood Pressure 120/84 08/17/2024 10:19 AM TELECOMMUNICATION SYSTEMS DESIGNER Pulse 82 08/17/2024 10:19 AM TELECOMMUNICATION SYSTEMS DESIGNER Temperature 36.3 C (97.4 F) 03/31/2019 8:28 AM CDT Respiratory Rate 16 08/17/2024 10:19 AM TELECOMMUNICATION SYSTEMS DESIGNER Oxygen Saturation 97% 03/31/2019 9:00 AM CDT Inhaled Oxygen Concentration - - Weight 84.8 kg (187 lb) 08/17/2024 10:19 AM TELECOMMUNICATION SYSTEMS DESIGNER Height 160 cm (5' 3 ) 08/17/2024 10:19 AM TELECOMMUNICATION SYSTEMS DESIGNER Body Mass Index 33.13 08/17/2024 10:19 AM TELECOMMUNICATION SYSTEMS DESIGNER Plan of Treatment Not on file Procedures Procedure Name Priority Date/Time Associated Diagnosis Comments HEPATITIS C AB REFLEX RNA QUANT PCR Routine 03/31/2019 8:45 AM CDT from Last 3 Months or Most Recently Relevant to Health Maintenance Results * Hepatitis C Antibody Reflex Hepatitis C RNA Quantitative PCR Blood (03/31/2019 8:45 AM CDT) Hep C Ab Negative Negative [facility] Blood specimen (specimen) 03/31/2019 8:45 AM CDT 03/31/2019 9:01 AM CDT us Notinfile Unknown LAB MICROBIOLOGY - GENERAL ORD ERABLES Final Result [facility] [id number] Department [place] [address] from Last 3 Months or Most Recently Relevant to Health Maintenance Insurance [employer] [facility] CHOICE OOS * Guarantor: NATALEE DAVIS Account Type Relation to Patient Date of Phone Billing Address Personal/Family Care Teams Chiropractic Doctor Relationship Specialty Start Date End Date No, Physician PCP - General 02/19/19 Mariela Mercado MD [address] [place] [address] Internal Medicine 02/19/19
--- OUTSIDE RECORDS SUMMARY | 2024-12-12 11:36 | XMS_ITS | Data Portability ---
Author Organization [facility] [employer], Main Office Address [address] [place] [address] Assessment No assessment recorded. Plan of Treatment Reminders Order Date Submit Date Provider Last Modified By Organization Details Last Modified Time Details Appointments None recorded. Lab CBC w/ auto diff 2022 023 [facility], [address] [place] [address], [id number], 3 19:44:41 CMP, serum or plasma 2022 023 [facility], [address] [place] [address], [id number], 3 21:23:16 lipid panel, serum 2022 023 [facility], [address] [place] [address], [address], 3 21:23:21 Referral None recorded. Procedures None recorded. Surgeries None recorded. Imaging XR, chest, 2 view 2022 023 [email or web address] [facility], [address], [address], [place], [address], 4 09:50:26 Medication Orders varenicline tartrate 0.5 mg (11)-1 mg (42) tablets in a dose pack 2023 024 [facility]/Pharmacy #[id number], [address], [place], [address], 4 15:23:43 varenicline tartrate 1 mg tablet 2023 024 [email or web address] [facility]/Pharmacy #[id number], [address], [place], [address], 4 10:46:34 varenicline tartrate 0.5 mg (11)-1 mg (42) tablets in a dose pack 2022 023 [facility]/Pharmacy #[id number], [address], [place], [address], 3 16:36:05 Patient TargetsNo targets recorded. Patient InstructionsNo instructions recorded. Reason for Referral None Reported. Results Created Date Observation Date Name Description Value Unit Range Abnormal Flag Note LastModifiedBy Organization Detail LastModifiedTime 09/02/2009/02/2023 CBC/C OMPLE TE BLD COUNT W/DIF F white blood cells 7.0 x10'3 /uL 4.2-10 .8 Not Available [facility] (Lab) [address] [place], [address], 09/02/2023 19:44:41 09/02/20 23 09/02/2023 CBC/C OMPLE TE BLD COUNT W/DIF F red blood cells 4.33 x10'6 /uL 3.80-5 .20 Not Available [facility] (Lab) [address] [place], [address], 09/02/2023 19:44:41 09/02/20 23 09/02/2023 CBC/C OMPLE TE BLD COUNT W/DIF F hemoglobin 13.8 g/dL 12.0-1 5.6 Not Available [facility] (Lab) [address] [place], [address], 09/02/2023 19:44:41 09/02/20 23 09/02/2023 CBC/C OMPLE TE BLD COUNT W/DIF F hematocrit 43.1 % 35.7-4 5.7 Not Available [facility] (Lab) [address] [place], [address], 09/02/2023 19:44:41 09/02/20 23 09/02/2023 CBC/C OMPLE TE BLD COUNT W/DIF F mean red cell volume 99.5 fL 82.0-9 9.0 high Not Available [facility] (Lab) [address] [place], [address], 09/02/2023 19:44:41 09/02/20 23 09/02/2023 CBC/C OMPLE TE BLD COUNT W/DIF F mean red cell hemoglobin 31.9 pg 27.0-3 3.0 Not Available [facility] (Lab) [address] [place], [address], 09/02/2023 19:44:41 09/02/20 23 09/02/2023 CBC/C OMPLE TE BLD COUNT W/DIF F mean RBC HGB concentratio n 32.0 g/dL 31.0-3 6.0 Not Available [facility] (Lab) [address] [place], [address], 09/02/2023 19:44:41 09/02/20 23 09/02/2023 CBC/C OMPLE TE BLD COUNT W/DIF F red cell distribution width 12.8 % 11.8-1 5.5 Not Available [facility] (Lab) [address] [place], [address], 09/02/2023 19:44:41 09/02/20 23 09/02/2023 CBC/C OMPLE TE BLD COUNT W/DIF F platelets 246 x10'3 /uL 150-40 0 Not Available [facility] (Lab) [address] [place], [address], 09/02/2023 19:44:41 09/02/20 23 09/02/2023 CBC/C OMPLE TE BLD COUNT W/DIF F mean platelet volume 11.5 fL 9.0-12 .4 Not Available [facility] (Lab) [address] [place], [address], 09/02/2023 19:44:41 09/02/20 23 09/02/2023 CBC/C OMPLE TE BLD COUNT W/DIF F neutrophils 61.5 % 39.0-7 2.0 Not Available [facility] (Lab) [address] [place], [address], 09/02/2023 19:44:41 09/02/20 23 09/02/2023 CBC/C OMPLE TE BLD COUNT W/DIF F lymphocytes 26.2 % 16.0-4 7.0 Not Available [facility] (Lab) [address] [place], [address], 09/02/2023 19:44:41 09/02/20 23 09/02/2023 CBC/C OMPLE TE BLD COUNT W/DIF F monocytes 10.3 % 5.0-12 .0 Not Available [facility] (Lab) [address] [place], [address], 09/02/2023 19:44:41 09/02/20 23 09/02/2023 CBC/C OMPLE TE BLD COUNT W/DIF F eosinophils 1.0 % 1.0-7. 0 Not Available [facility] (Lab) [address] [place], [address], 09/02/2023 19:44:41 09/02/20 23 09/02/2023 CBC/C OMPLE TE BLD COUNT W/DIF F basophils 0.6 % 0.0-2. 0 Not Available [facility] (Lab) [address] [place], [address], 09/02/2023 19:44:41 09/02/20 23 09/02/2023 CBC/C OMPLE TE BLD COUNT W/DIF F immature granulocytes 0.4 % 0.00-0 .50 Not Available [facility] (Lab) [address] [place], [address], 09/02/2023 19:44:41 09/02/20 23 09/02/2023 CBC/C OMPLE TE BLD COUNT W/DIF F neutrophils, absolute count 4.29 x10'3 /uL 1.5-8. 0 Not Available [facility] (Lab) [address] [place], [address], 09/02/2023 19:44:41 09/02/20 23 09/02/2023 CBC/C OMPLE TE BLD COUNT W/DIF F lymphocytes, absolute count 1.83 x10'3 /uL 1.07-3 .43 Not Available [facility] (Lab) [address] [place], [address], 09/02/2023 19:44:41 09/02/20 23 09/02/2023 CBC/C OMPLE TE BLD COUNT W/DIF F monocytes, absolute count 0.72 x10'3 /uL 0.29-0 .99 Not Available [facility] (Lab) [address] [place], [address], 09/02/2023 19:44:41 09/02/20 23 09/02/2023 CBC/C OMPLE TE BLD COUNT W/DIF F eosinophils, absolute count 0.07 x10'3 /uL 0.02-0 .53 Not Available [facility] (Lab) [address] [place], [address], 09/02/2023 19:44:41 09/02/20 23 09/02/2023 CBC/C OMPLE TE BLD COUNT W/DIF F basophils, absolute count 0.04 x10'3 /uL 0.01-0 .08 Not Available [facility] (Lab) [address] [place], [address], 09/02/2023 19:44:41 09/02/20 23 09/02/2023 CBC/C OMPLE TE BLD COUNT W/DIF F immature granulocytes ,absolute 0.03 x10'3 /uL 0.00-0 .05 Not Available [facility] (Lab) [address] [place], [address], 09/02/2023 19:44:41 09/02/20 23 09/02/2023 CBC/C OMPLE TE BLD COUNT W/DIF F nucleated red blood cells 0.0 % -0 Not Available [facility] (Lab) [address] [place], [address], 09/02/2023 19:44:41 09/02/20 23 09/02/2023 CBC/C OMPLE TE BLD COUNT W/DIF F NRBC# 0.00 x10'3 /uL Not Available [facility] (Lab) [address] [place], [address], 09/02/2023 19:44:41 09/02/20 23 09/02/2023 COMPR EHENS PADMINI METAB OLIC PANEL sodium 140 mmol/ L 137-14 5 Not Available [facility] (Lab) [address] [place], [address], 09/02/2023 21:23:16 09/02/20 23 09/02/2023 COMPR EHENS PADMINI METAB OLIC PANEL potassium 4.4 mmol/ L 3.5-5. 1 Not Available [facility] (Lab) [address] [place], [address], 09/02/2023 21:23:16 09/02/20 23 09/02/2023 COMPR EHENS PADMINI METAB OLIC PANEL chloride 106 mmol/ L 98-107 Not Available [facility] (Lab) [address] [place], [address], 09/02/2023 21:23:16 09/02/20 23 09/02/2023 COMPR EHENS PADMINI METAB OLIC PANEL carbon dioxide 27 mmol/ L 22-30 Not Available [facility] (Lab) [address] [place], [address], 09/02/2023 21:23:16 09/02/20 23 09/02/2023 COMPR EHENS PADMINI METAB OLIC PANEL anion gap 11.4 mmol/ L 14-22 low Not Available [facility] (Lab) [address] [place], [address], 09/02/2023 21:23:16 09/02/20 23 09/02/2023 COMPR EHENS PADMINI METAB OLIC PANEL glucose 98 mg/dL 70-99 Not Available [facility] (Lab) [address] [place], [address], 09/02/2023 21:23:16 09/02/20 23 09/02/2023 COMPR EHENS PADMINI METAB OLIC PANEL BUN 10 mg/dL 8-19 Not Available [facility] (Lab) [address] [place], [address], 09/02/2023 21:23:16 09/02/20 23 09/02/2023 COMPR EHENS PADMINI METAB OLIC PANEL creatinine 0.78 mg/dL 0.66-1 .25 Not Available [facility] (Lab) [address] [place], [address], 09/02/2023 21:23:16 09/02/20 23 09/02/2023 COMPR EHENS PADMINI METAB OLIC PANEL GFR >60 Refer ence Range : [place] ge GFR Healt hy Adult : >60 mL/mi n/1.7 3 m2 Chron ic Kidne y Disea se: 15-60 mL/mi n/1.7 3 m2 Kidne y Failu re: <15/m L/min /1.73 m2 www.n iddk. nih.g ov The MDRD study equat ion has not been valid ated in child kristina <18 years of age; pregn ant women ; the elder ly >85 years of age; or in some racia l or ethni c subgr oups, such as Hispa nics. Outsi de the valid ated darlene eters , estim ated GFR is less accur ate, requi ring clini vishnu judgm ent on a case- by-ca se basis . Clini vishnu inter preta tion for other races and ages must be made by the clini mindy. The MDRD study equat ion has not been valid ated for the evalu ation of serum creat inine relat ed to nutri iggy l statu s or medic ation usage . For perso ns <18 years of age, a pedia tric GFR calcu lator is avail able on the [facility] websi te: https ://cherelle w.kid katie.o rg/pr ofess ional s/kdo qi/gf r_cal culat or Not Available [facility] (Lab) [address] [place], [address], 09/02/2023 21:23:16 09/02/20 23 09/02/2023 COMPR EHENS PADMINI METAB OLIC PANEL alkaline phosphatase 47 U/L 38-126 Not Available [facility] (Lab) [address] [place], [address], 09/02/2023 21:23:16 09/02/20 23 09/02/2023 COMPR EHENS PADMINI METAB OLIC PANEL alanine aminotransfe rase 17 U/L 0-35 Not Available [facility] (Lab) [address] [place], [address], 09/02/2023 21:23:16 09/02/20 23 09/02/2023 COMPR EHENS PADMINI METAB OLIC PANEL aspartate aminotransfe rase 24 U/L 15-37 Not Available [facility] (Lab) [address] [place], [address], 09/02/2023 21:23:16 09/02/20 23 09/02/2023 COMPR EHENS PADMINI METAB OLIC PANEL bilirubin, total 1.00 mg/dL 0.20-1 .30 Not Available [facility] (Lab) [address] [place], [address], 09/02/2023 21:23:16 09/02/20 23 09/02/2023 COMPR EHENS PADMINI METAB OLIC PANEL calcium 9.4 mg/dL 8.4-10 .2 Not Available [facility] (Lab) [address] [place], [address], 09/02/2023 21:23:16 09/02/20 23 09/02/2023 COMPR EHENS PADMINI METAB OLIC PANEL total protein 7.4 g/dL 6.3-8. 2 Not Available [facility] (Lab) [address] [place], [address], 09/02/2023 21:23:16 09/02/20 23 09/02/2023 COMPR EHENS PADMINI METAB OLIC PANEL albumin 4.2 g/dL 3.4-5. 0 Not Available [facility] (Lab) [address] [place], [address], 09/02/2023 21:23:16 09/02/20 23 09/02/2023 COMPR EHENS PADMINI METAB OLIC PANEL globulin 3.2 g/dL 2.6-4. 2 Not Available [facility] (Lab) [address] [place], [address], 09/02/2023 21:23:16 09/02/20 23 09/02/2023 COMPR EHENS PADMINI METAB OLIC PANEL A/G ratio 1.3 ratio 1.0-2. 0 Not Available [facility] (Lab) [address] [place], [address], 09/02/2023 21:23:16 09/02/20 23 09/02/2023 LIPID PANEL cholesterol 131 mg/dL 140-19 9 low NIH MARILU NSUS RECOM MENDA TION FOR WALE STERO L: ADULT CHILD LOW RISK: <200 <170 BORDE RLINE : <200- 239 ----- HIGH RISK: >240 >200 Not Available [facility] (Lab) [address] [place], [address], 09/02/2023 21:23:21 09/02/20 23 09/02/2023 LIPID PANEL triglyceride s 96 mg/dL 0-150 NIH MARILU NSUS REPOR T RECOM MENDA TION FOR TRIGL YCERI TAMMI: ADULT CHILD LOW RISK: <150 ----- BODER LINE: 150-1 99 ----- HIGH RISK: >200 ----- Not Available [facility] (Lab) [address] [place], [address], 09/02/2023 21:23:21 09/02/2009/02/2023 LIPID PANEL HDL cholesterol 56 mg/dL 40- Not Available [facility] (Lab) [address] [place], [address], 09/02/2023 21:23:21 09/02/2009/02/2023 LIPID PANEL LDL cholesterol, calculated 56 mg/dL 0-130 NIH MARILU NSUS REPOR T RECOM MENDA TIONS FOR LDL: ADULT CHILD LOW RISK <130 <110 (OPTI MAL LDL) <100 ----- BORDE RLINE : 130-1 59 ----- HIGH RISK: >160 >130 A TRIGL YCERI DE RESUL T >400 INVAL IDATE S THE CALCU LATIO N FOR LDL FRACT IONAT ION - THE LDL RESUL T WILL NOT BE REPOR AJ. Not Available [facility] (Lab) [address] [place], [address], 09/02/2023 21:23:21 Result Notes None recorded. Problems Name Problem SNOMED Code Status Onset Date Resolution Date Notes Provider Name and Address Organization Details Recorded Time Nicotine dependence 39037507 Completed 202206/04/2024 JENNY Amin, [place] - [facility] [employer] 4 14:43:59 Obesity 678695770 Active 2022 JENNY Amin, [facility] 14:43:54 Smoker 86767800 Active 2022 JENNY Amin, [facility] 14:43:53 Problem Notes None recorded. Procedures Surgical History Date Name Laterality Status Provider Name and Address Organization Details Recorded Time Cyst Removal completed Madyson Montana CMA [facility] 08/28/2023 16:21:52 Toe completed Madyson Montana CMA [facility] 08/28/2023 16:27:56 Imaging Results None recorded. Procedure Notes None recorded. Medical Equipment None Reported. Medications Name Sig Start Date Stop Date Status Note LastModified by Organization Details LastModified Time meloxicam 15 mg tablet TAKE 1 TABLET BY MOUTH EVERY DAY 08/28 completed Not Available Not Available Not Available phentermine 15 mg capsule TAKE 1 CAPSULE BY MOUTH EVERY DAY 08/28 completed Not Available Not Available Not Available metronidazo le 500 mg tablet TAKE 1 TABLET BY MOUTH TWICE A DAY FOR 7 DAYS 08/28 completed Not Available Not Available Not Available meloxicam 7.5 mg tablet TAKE 1 TABLET TWICE DAY NEEDED FOR PAIN active Not Available Not Available No t Available dexamethaso ne sodium phosphate 4 mg/mL injection solution active Not Available Not Available Not Available methylpredn isolone 4 mg tablets in a dose pack 08/28 completed Not Available Not Available Not Available topiramate 50 mg tablet TAKE 1 TABLET BY MOUTH TWICE A DAY 08/28 completed Not Available Not Available Not Available varenicline tartrate 1 mg tablet TAKE 1 TABLET BY MOUTH TWICE A DAY 2023 active Not Available Not Available Not Avai lable varenicline tartrate 0.5 mg (11)-1 mg (42) tablets in a dose pack TAKE DIRECTED ON THE PACKAGE active Not Available Not Available No t Available Seglentis 44 mg-56 mg tablet TAKE 1 TABLET BY MOUTH TWICE A DAY NEEDED FOR PAIN 08/28 completed Not Available Not Available Not Available Vitals Date Recorded Body weight Heart rate Oxygen saturation Oxygen saturation in Arterial blood by Pulse oximetry Body temperature Body mass index (BMI) Body height Systolic blood pressure Diastolic blood pressure Provider Name and Address Organization Details Last Updated DateTime 3 98338.8 1 g 80 /min 98 % 98 % 97.7 [degF] 32.2 kg/m2 160.02 cm 122 mm[Hg] 74 mm[Hg] Madyson Montana CMA [facility] [employer] [facility] 3 16:14:37 Date Recorded Body height Body mass index (BMI) Body weight Body temperature Heart rate Oxygen saturation Oxygen saturation in Arterial blood by Pulse oximetry Systolic blood pressure Diastolic blood pressure Provider Name and Address Organization Details Last Updated DateTime 4 160.02 cm 32.6 kg/m2 54192 g 97.5 [degF] 88 /min 98 % 98 % 124 mm[Hg] 80 mm[Hg] JENNY Amin [facility] [employer] [facility] 4 14:42:41 Social History Question Answer Notes LastModified by Organization Details LastModified Time Tobacco Smoking Status Current Every Day Smoker Vaping Madyson Montana CMA [facility] 08/28/2023 16:22:55 What Is Your Level Of Alcohol Consumption? Occasional [email or web address] Information not available 08/28/2023 In The 14 Days Before Symptom Onset, Have You Had Close Contact With A Laboratory-confi rmed COVID-19 While That Case Was Ill? No [email or web address] Information not available 08/28/2023 In The 14 Days Before Symptom Onset, Have You Had Close Contact With A Person Who Is Under Investigation For COVID-19 While That Person Was Ill? No [email or web address] Information not available 08/28/2023 Are You Currently Employed? Yes Information not available 08/28/2023 What Type Of Diet Are You Following? REGULAR [email or web address] Information not available 08/28/2023 What Is The Highest Grade Or Level Of School You Have Completed Or The Highest Degree You Have Received? 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 SingleLevelHouse [email or web address] Information not available 08/28/2023 How Many Children Do You Have? 7 Information not available 08/28/2023 Do You Have Any Pets? Yes 3 Dogs, 2 Cats [email or web address] Information not available 08/28/2023 What Is Your Relationship Status? Single [email or web address] Information not available 08/28/2023 Do You Use Your Seat Belt Or Car Seat Routinely? Yes [email or web address] Information not available 08/28/2023 Do You Have Smoke And Carbon Monoxide Detectors In Your Home? Yes [email or web address] Information not available 08/28/2023 At What Age Did You Start Smoking Tobacco? 12 [email or web address] Information not available 08/28/2023 Are You Passively Exposed To Smoke? Yes Information not available 08/28/2023 Are There Any Smokers In Your House? Yes [email or web address] Information not available 08/28/2023 Do You Feel Stressed (tense, Restless, Nervous, Or Anxious, Or Unable To Sleep At Night)? [id number] [email or web address] Information not available 08/28/2023 Do You Use Sunscreen Routinely? Yes Information not available 08/28/2023 Have You Recently Traveled Abroad? No [email or web address] Information not available 08/28/2023 Do You Have Any Dietary Restrictions? No [email or web address] Information not available 08/28/2023 Sex: Unknown Functional Status Question Answer Note LastModified by Organizat ion Details LastModified Time What is your exercise level? Occasional [email or web address] Information not available 08/28/2023 Mental Status None recorded. Family History Nothing Reported. Medical History No medical history recorded. Gynecological HistoryNo gynecological history recorded. Obstetrics History GPAL:G 0 P 0 0 0 0 Past Encounters Encounter ID Performer Location Encounter Start Date Encounter Closed Date Diagnosis/Indication Diagnosis SNOMED-CT Code Diagnosis ICD10 Code Diagnosis Note [id number] Quentin Tapia MD [facility] Internal [facility] [address] [place] [address] 08/28/2023 15:54:29 08/28/2023 16:45:44 Adult health examination 493362686 Z00.00 Z13.220 mammogram gets at gyne Nicotine dependence 5629 4008 F17.200 Obesity 337798340 E66.9 advised to lose, watch carbs Smoker 50994362 F17.789 [id number] Quentin Tapia MD [facility] Internal Med [facility] [address] [place] [address] 06/04/2024 14:37:32 06/04/2024 15:15:37 Adult health examination 219897815 Z00.00 Z13.220 Mammogram- [employer] - [employer]- 2022- NLFLU- NEVER Smoker 77365082 F17.200 willing to quit Obesity 283561302 E66.9 she wants to start zepbound. she has thyroid nodules without a definitive diagnosis. I discussed that is is a contraindi cation and should not take taking any of these meds.Advis ed to keep doing diet and exercise and go to weight loss clinic if interested to explore other choices Health Concerns Section Related Observation LastModified by Organization Detai ls LastModified Time None Recorded Concern Status LastModified by Organization Details LastModified Time None Recorded Advance Directives Directive None Recorded Payers Encounter Date Sequence Insurance Name Policy Number Policy Del Valle Covered Member ID Del Valle Member ID Guarantor Name 08/28/2023 1 [place] [id number] Davril E Hay [id number] Davril E Hay 06/04/2024 1 [place] [id number] Davril E Hay [id number] Davril E Hay Notes Date Note Type Note Provider Name and Address Organization Details Recorded Time 08/28/2023 text/html she is here to establish, not on meds, in good health.she was a smoker, now vaping, can't quit, needs help. Quentin Tapia MD [address] [place] [address], [facility] [address], [place], [address], [facility] [employer] 08/28/2023 16:43:08 06/04/2024 text/html Pt is here today discuss weight loss. she is doing regular exercises and watching diet but not losing any weight.She would like to try Zepbound.States that she has tried everything and not loosing any weight She had an US of her thyroid back in 08/2023, has nodules, it was done by her OBG, labs were fine, seen endo, getting another ultra sound Obesity- Has gained 2 lbs Smoker- Advised to quit, She is currently on the Nicotine lozenges, has tried chantix and wants to use it again. Quentin Tapia MD [address] [facility], [facility] [address], [place], [address], [place] [facility] 06/04/2024 15:24:30 OBGyn Episode No OBEpisode recorded.
--- OUTSIDE RECORDS SUMMARY | 2024-12-12 11:36 | XMS_ITS | Clinical Summary ---
Author Organization [facility] Physician Of [facility] [address] [place] [id number] Care Team Providers Care Nursery Attendant Name Role Phone No, Physician Primary Care Provider [phone] Mariela Mercado MD Unavailable [phone] Allergies Active Allergy Reactions Criticality Noted Date Comments Aspirin Nausea only Low 03/31/2019 Codeine Itching Low 03/31/2019 Hydrocodone Itching Low 03/31/2019 severe Penicillins Unknown 03/31/2019 Hospitalized as a child Medications meloxicam (MOBIC) 7.5 mg tablet TAKE 1 TABLET TWICE DAY NEEDED FOR PAIN 11/23/2023 Active Active Problems Problem Noted Date Diagnosed Date Multinodular goiter 12/10/2023 Assessment & Plan (08/17/2024 11:54 AM POWERHOUSE MECHANIC HELPER): Performed a follow-up thyroid ultrasound in office [...] (03/18/2019): Added automatically from request for surgery [id number] Cyst of skin 03/18/2019 Overview (03/18/2019): Added automatically from request for surgery [id number] Immunizations Immunization Administration Dates Next Due Tdap 05/05/2015 Varicella 07/08/2014 Surgical History Surgery Date Site/Laterality Comments CARPAL TUNNEL RELEASE Medical History Medical History Date Comments Lipoma of left thigh Cyst of soft tissue Asthma GERD (gastroesophageal reflux disease) hx of when Anxiety 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 great to es Depression Family History Medical History Relation Name Comments Hypertension Father Alcohol abuse Mother Arthritis Mother Cancer Mother Hypertension Mother Mental illness Mother Thyroid disease Mother Alcohol abuse Sister Mental illness Sister Thyroid cancer Neg Hx Relation Name Status Comments Father Mother Sister Social History Tobacco Use Types Packs/Day Years [...] file Not on file Not on file Obstetrics History Last Filed Vital Signs Vital Sign Reading Time Taken Comments Blood Pressure 120/84 08/17/2024 10:19 AM POWERHOUSE MECHANIC HELPER Pulse 82 08/17/2024 10:19 AM POWERHOUSE MECHANIC HELPER Temperature 36.3 C (97.4 F) 03/31/2019 8:28 AM CDT Respiratory Rate 16 08/17/2024 10:19 AM POWERHOUSE MECHANIC HELPER Oxygen Saturation 97% 03/31/2019 9:00 AM CDT Inhaled Oxygen Concentration - - Weight 84.8 kg (187 lb) 08/17/2024 10:19 AM POWERHOUSE MECHANIC HELPER Height 160 cm (5' 3 ) 08/17/2024 10:19 AM POWERHOUSE MECHANIC HELPER Body Mass Index 33.13 08/17/2024 10:19 AM POWERHOUSE MECHANIC HELPER Plan of Treatment Health Maintenance Due Date Last Done Comments Breast Cancer Screening-Mammogram 1978 Cervical Cancer Screening 1978 Colon Cancer Screening-Colonoscopy 1978 Depression Screening 1978 Hepatitis B Screening 1996 Regular Well Visit/Exam 18-64 1996 Pneumococcal vaccine <65 (1 of 2 - PCV) 1997 Influenza Vaccine (#1) 2024 DTaP/Tdap/Td Vaccine (2 - Td or Tdap) 05/05/2025 05/05/2015 Hepatitis C Screening Completed 03/31/2019 HPV Vaccines Aged Out No longer eligi ble based on patient's age to complete this topic Procedures Procedure Name Priority Date/Time Associated Diagnosis Comments HEPATITIS C AB REFLEX RNA QUANT PCR Routine 03/31/2019 8:45 AM CDT from Last 3 Months or Most Recently Relevant to Health Maintenance Results * Hepatitis C Antibody Reflex Hepatitis C RNA Quantitative PCR Blood (03/31/2019 8:45 AM CDT) Hep C Ab Negative Negative [facility] Blood specimen (specimen) 03/31/2019 8:45 AM CDT 03/31/2019 9:01 AM CDT us Notinfile Unknown LAB MICROBIOLOGY - GENERAL ORD ERABLES Final Result [facility] [id number] Department [place] [address] from Last 3 Months or Most Recently Relevant to Health Maintenance Insurance ACCESS BLUE ACC CHOICE [facility] Address: [facility] [id number] [place] [address] * Guarantor: NATALEE DAVIS Account Type Relation to Patient Date of Phone Billing Address Personal/Family Care Teams Nursery Attendant Relationship Specialty Start Date End Date No, Physician PCP - General 02/19/19 [place] [address] [place] [address] Internal Medicine 02/19/19
--- OUTSIDE RECORDS SUMMARY | 2024-12-12 11:36 | XMS_ITS | CONTINUITY OF CARE DOCUMENT ---
Author Name milton rose Address Unknown Organization [facility] Address [address] [place] [address] Phone [phone] Care Team Providers Care Art Therapist Name Role Phone Jim Wilson MD Unavailable SHIRIN BROWNING Unavailable SHIRIN BROWNING Unavailable [phone] PROBLEMS Condition Status Date Provider Notes Anxiety active Jim Wilson MD Chest pain-type to be determined active Hank Wilson MD ENCOUNTERS Date Type Provider Location Encounter Diag nosis - In-person encounter Office Visit Jim Wilson MD [place] [facility] AnxietyChest pain-type to be determined VITAL SIGNS Date Observation Value Provider Body Mass Index (Ratio) 29.86 kg/m2 Eric Wilson MD blood pressure, diastolic 60 mm[Hg] Wil Hernandez blood pressure, systolic 110 mm[Hg] Whit Hernandez oxygen saturation, oximetry 97 % Phillip Hernandez respiratory rate E&M 18 /min Evelia Hernandez pulse rate 76 /min Phillip le weight E&M 168.6 [lb_av] Phillip cota height E&M 63 [in_i] Phillip le ALLERGIES Allergy Name Onset Date Reaction Criticality Status CODEINE High Criticality active PENICILLIN High Criticality active HISTORY OF MEDICATION USE No Known Medication SOCIAL HISTORY Date Observation Value Provider smoking/tobacco cess ation, patient education and counseling yes Jim Wilson MD chewing tobacco use Current Jim Wilson MD social history E&M S moking History: Ralph desai is a former smoker. Jim Wilson MD social history reviewed E&M revi ewed - no changes required Jim Wilson MD number of grandchildren Jim Wilson MD smoking, year quit 2018 PhillipCheyenne Yangenson cigarette use yes Phillip Trey raysa smoking status Former smoker Phillip Palomoson INSURANCE PROVIDERS Payer name Policy type / Coverage type [place] red alliance party ID BLUE [facility] Blue [facility] [id number] 1 TREATMENT PLAN Date Name Performer Cardiology:No clear FMHx. Sx is most likely anxiety or MSK. Blood work was negative per hospital records. EKG WNL, will check echo and nuc stress f/u 1 mo. CHOL levels were excellent. Jim Wilson MD Date Name Stress Exercise Card iolite Complete Echo DLCO - 10140 FRC - 14164 FVC - 85087 HISTORY OF PROCEDURES Procedure Date Procedure Name Provider Procedure Notes S tatus EKG Jim Wilson MD compl eted
== END 2024-12-12 11:33 | disposition home or self-care (01) ==
LOC: ANHLAB 11:34
PROVIDERS: PCP Obstetrics & Gynecology; Visit Provider Obstetrics & Gynecology
DX: Z01.818 Encounter for other preprocedural examination (principal)
CPT/HCPCS: 36415; 86850; 86900; 86901

== ENCOUNTER 2024-12-16 01:03 | Day surgery (SDC) | payer BC, SELFPAY ==
[2024-12-11 09:31] VITALS: BMI 28.5
--- NOTE | 2024-12-11 09:32 | PC.NURSE ---
Report to the Outpatient Waiting Room, entrance under the green pavilion located off [facility], at time _1pm_ on date _[id number]_. Planned Procedure Time: _3pm_.? Time changes happen often and if your time is changed the preop area will call you the afternoon before. - You and your visitor will be asked to self-screen and do not enter if you have any COVID symptoms. Please call surgeon if you need to reschedule. - A mask is optional within the hospital at this time. Patients may have clear liquids (water, carbonated beverages, clear teas, apple juice) until 3 hours prior to surgery with a maximum of 20 ounces. - No food from midnight until time of surgery and no smoking, or chewing tobacco (or any form of nicotine). No chewing gum, candy or mints. Take only the following medications with a SIP of water on the morning of surgery: __None____ DO NOT STOP ANY OF YOUR OTHER PRESCRIPTION MEDICATIONS PRIOR TO SURGERY EXCEPT THE FOLLOWING Hold all vitamins and supplements for 3 days per anesthesiologist. Medications to discontinue per physician Date to take last mwjj___[id number]___ Please no make-up, nail icelandic, hairspray, perfume, deodorant, or body powder the day of surgery.? No jewelry (including any body piercings) or valuables the day of surgery, leave them at home.? Please take a shower or bath the night before, or the morning of, surgery with an antibacterial soap.? Wear comfortable, loose fitting clothing.? - Jewelry must be removed prior to entering the operating room.? Rings and piercings that are not removed may be cut off. - The hospital will not accept responsibility for valuables.? - Please leave all valuables, including medications, at home the day of surgery. If you are going home after surgery, a licensed motor coach driver must drive you home.? - NO public transportation without another adult if you receive anesthesia. - We recommend that an adult stay with you for 24 hours following discharge. - We also recommend that you do not drive, make important decision, drink alcoholic beverages, or take any drugs that were not prescribed by your health care provider for at least 24 hours after your discharge time. Follow any additional instructions given to you from your surgeon. Telephone instructions given to __Kulwinder__and asked if any additional questions and then verbalized understanding. Patient advised to call surgeon office or pre surgery nurse liaison [phone] if any additional questions.
--- OUTSIDE RECORDS SUMMARY | 2024-12-16 01:08 | XMS_ITS | Data Portability ---
Author Organization [facility], Main Office Address [address] [place] [address] Assessment No assessment recorded. Plan of Treatment Reminders Order Date Submit Date Provider Last Modified By Organization Details Last Modified Time Details Appointments None recorded. Lab CBC w/ auto diff 2022 023 [facility], [address] [place] [address], [address], 3 19:44:41 CMP, serum or plasma 2022 023 [facility], [address] [place] [address], [address], 3 21:23:16 lipid panel, serum 2022 023 [facility], [address] [place] [address], [address], 3 21:23:21 Referral None recorded. Procedures None recorded. Surgeries None recorded. Imaging XR, chest, 2 view 2022 023 [email or web address], [address], [address], [place], [address], 4 09:50:26 Medication Orders varenicline tartrate 0.5 mg (11)-1 mg (42) tablets in a dose pack 2023 024 [facility]/Pharmacy #[id number], [address], [place], [address], 4 15:23:43 varenicline tartrate 1 mg tablet 2023 024 [email or web address] [facility]/Pharmacy #[id number], [address], [place], [address], 4 10:46:34 varenicline tartrate 0.5 mg (11)-1 mg (42) tablets in a dose pack 2022 023 [facility]/Pharmacy #[id number], [address], [place], [address], 3 16:36:05 Patient TargetsNo targets recorded. Patient InstructionsNo instructions recorded. Reason for Referral None Reported. Results Created Date Observation Date Name Description Value Unit Range Abnormal Flag Note LastModifiedBy Organization Detail LastModifiedTime 09/02/2009/02/2023 CBC/C OMPLE TE BLD COUNT W/DIF F white blood cells 7.0 x10'3 /uL 4.2-[address] [facility] (Lab) [address] [place], [address], 09/02/2023 19:44:41 09/02/20 23 09/02/2023 CBC/C OMPLE TE BLD COUNT W/DIF F red blood cells 4.33 x10'6 /uL 3.80-[address] [facility] (Lab) [address] [place], [address], 09/02/2023 19:44:41 09/02/20 23 09/02/2023 CBC/C OMPLE TE BLD COUNT W/DIF F hemoglobin 13.8 g/dL 12.0-[address] [facility] (Lab) [address] [place], [address], 09/02/2023 19:44:41 09/02/20 23 09/02/2023 CBC/C OMPLE TE BLD COUNT W/DIF F hematocrit 43.1 % 35.7-[address] [facility] (Lab) [address] [place], [address], 09/02/2023 19:44:41 09/02/20 23 09/02/2023 CBC/C OMPLE TE BLD COUNT W/DIF F mean red cell volume 99.5 fL 82.0-9 [address] [facility] (Lab) [address] [place], [address], 09/02/2023 19:44:41 09/02/20 23 09/02/2023 CBC/C OMPLE TE BLD COUNT W/DIF F mean red cell hemoglobin 31.9 pg 27.0-[address] [facility] (Lab) [address] [place], [address], 09/02/2023 19:44:41 09/02/20 23 09/02/2023 CBC/C OMPLE TE BLD COUNT W/DIF F mean RBC HGB concentratio n 32.0 g/dL 31.0-[address] [facility] (Lab) [address] [place], [address], 09/02/2023 19:44:41 09/02/20 23 09/02/2023 CBC/C OMPLE TE BLD COUNT W/DIF F red cell distribution width 12.8 % 11.8-[address] [facility] (Lab) [address] [place], [address], 09/02/2023 19:44:41 09/02/20 23 09/02/2023 CBC/C OMPLE TE BLD COUNT W/DIF F platelets 246 x10'3 /uL 150-[address] [facility] (Lab) [address] [place], [address], 09/02/2023 19:44:41 09/02/20 23 09/02/2023 CBC/C OMPLE TE BLD COUNT W/DIF F mean platelet volume 11.5 fL 9.0-[address] [facility] (Lab) [address] [place], [address], 09/02/2023 19:44:41 09/02/20 23 09/02/2023 CBC/C OMPLE TE BLD COUNT W/DIF F neutrophils 61.5 % 39.0-7 2.0 Not Available [facility] (Lab) [address] [place], [address], 09/02/2023 19:44:41 09/02/20 23 09/02/2023 CBC/C OMPLE TE BLD COUNT W/DIF F lymphocytes 26.2 % 16.0-[address] [facility] (Lab) [address] [place], [address], 09/02/2023 19:44:41 09/02/20 23 09/02/2023 CBC/C OMPLE TE BLD COUNT W/DIF F monocytes 10.3 % 5.0-12 .0 Not Available [facility] (Lab) [address] [place], [address], 09/02/2023 19:44:41 09/02/20 23 09/02/2023 CBC/C OMPLE TE BLD COUNT W/DIF F eosinophils 1.0 % 1.0-7. [address] [facility] (Lab) [address] [place], [address], 09/02/2023 19:44:41 09/02/20 23 09/02/2023 CBC/C OMPLE TE BLD COUNT W/DIF F basophils 0.6 % 0.0-2. [address] [facility] (Lab) [address] [place], [address], 09/02/2023 19:44:41 09/02/20 23 09/02/2023 CBC/C OMPLE TE BLD COUNT W/DIF F immature granulocytes 0.4 % 0.00-[address] [facility] (Lab) [address] [place], [address], 09/02/2023 19:44:41 09/02/20 23 09/02/2023 CBC/C OMPLE TE BLD COUNT W/DIF F neutrophils, absolute count 4.29 x10'3 /uL 1.5-8. [address] [facility] (Lab) [address] [place], [address], 09/02/2023 19:44:41 09/02/20 23 09/02/2023 CBC/C OMPLE TE BLD COUNT W/DIF F lymphocytes, absolute count 1.83 x10'3 /uL 1.07-[address] [facility] (Lab) [address] [place], [address], 09/02/2023 19:44:41 09/02/20 23 09/02/2023 CBC/C OMPLE TE BLD COUNT W/DIF F monocytes, absolute count 0.72 x10'3 /uL 0.29-[address] [facility] (Lab) [address] [place], [address], 09/02/2023 19:44:41 09/02/20 23 09/02/2023 CBC/C OMPLE TE BLD COUNT W/DIF F eosinophils, absolute count 0.07 x10'3 /uL 0.02-[address] [facility] (Lab) [address] [place], [address], 09/02/2023 19:44:41 09/02/20 23 09/02/2023 CBC/C OMPLE TE BLD COUNT W/DIF F basophils, absolute count 0.04 x10'3 /uL 0.01-[address] [facility] (Lab) [address] [place], [address], 09/02/2023 19:44:41 09/02/20 23 09/02/2023 CBC/C OMPLE TE BLD COUNT W/DIF F immature granulocytes ,absolute 0.03 x10'3 /uL 0.00-[address] [facility] (Lab) [address] [place], [address], 09/02/2023 19:44:41 09/02/20 23 09/02/2023 CBC/C OMPLE TE BLD COUNT W/DIF F nucleated red blood cells 0.0 % -0 Not Available [facility] (Lab) [address] [place], [address], 09/02/2023 19:44:41 09/02/20 23 09/02/2023 CBC/C OMPLE TE BLD COUNT W/DIF F NRBC# 0.00 x10'3 /uL Not Available [facility] (Lab) [address] [place], [address], 09/02/2023 19:44:41 09/02/20 23 09/02/2023 COMPR EHENS PADMINI METAB OLIC PANEL sodium 140 mmol/ L 137-[address] [facility] (Lab) [address] [place], [address], 09/02/2023 21:23:16 09/02/20 23 09/02/2023 COMPR EHENS PADMINI METAB OLIC PANEL potassium 4.4 mmol/ L 3.5-5. [address] [facility] (Lab) [address] [place], [address], 09/02/2023 21:23:16 09/02/20 23 09/02/2023 COMPR EHENS PADMINI METAB OLIC PANEL chloride 106 mmol/ L 98-[address] [facility] (Lab) [address] [place], [address], 09/02/2023 21:23:16 09/02/20 23 09/02/2023 COMPR EHENS PADMINI METAB OLIC PANEL carbon dioxide 27 mmol/ L 22-[address] [facility] (Lab) [address] [place], [address], 09/02/2023 21:23:16 09/02/20 23 09/02/2023 COMPR EHENS PADMINI METAB OLIC PANEL anion gap 11.4 mmol/ L 14-[address] [facility] (Lab) [address] [place], [address], 09/02/2023 21:23:16 09/02/20 23 09/02/2023 COMPR EHENS PADMINI METAB OLIC PANEL glucose 98 mg/dL 70-[address] [facility] (Lab) [address] [place], [address], 09/02/2023 21:23:16 09/02/20 23 09/02/2023 COMPR EHENS PADMINI METAB OLIC PANEL BUN 10 mg/dL 8-[address] [facility] (Lab) [address] [place], [address], 09/02/2023 21:23:16 09/02/20 23 09/02/2023 COMPR EHENS PADMINI METAB OLIC PANEL creatinine 0.78 mg/dL 0.66-[address] [facility] (Lab) [address] [place], [address], 09/02/2023 21:23:16 09/02/20 23 09/02/2023 COMPR EHENS PADMINI METAB OLIC PANEL GFR >60 Refer ence Range : [place] ge GFR Healt hy Adult : >60 [...] calcu lator is avail able on the [facility] websi te: https ://cherelle w.kid katie.o rg/pr ofess ional s/kdo qi/gf r_cal culat or Not Available [facility] (Lab) [address] [place], [address], 09/02/2023 21:23:16 09/02/20 23 09/02/2023 COMPR EHENS PADMINI METAB OLIC PANEL alkaline phosphatase 47 U/L 38-126 Not Available [facility] (Lab) [address] [place], [address], 09/02/2023 21:23:16 09/02/20 23 09/02/2023 COMPR EHENS PADMINI METAB OLIC PANEL alanine aminotransfe rase 17 U/L 0-35 Not Available [facility] (Lab) [address] [place], [address], 09/02/2023 21:23:16 09/02/20 23 09/02/2023 COMPR EHENS PADMINI METAB OLIC PANEL aspartate aminotransfe rase 24 U/L 15-37 Not Available [facility] (Lab) [address] [place], [address], 09/02/2023 21:23:16 09/02/20 23 09/02/2023 COMPR EHENS PADMINI METAB OLIC PANEL bilirubin, total 1.00 mg/dL 0.20-[address] [facility] (Lab) [address] [place], [address], 09/02/2023 21:23:16 09/02/20 23 09/02/2023 COMPR EHENS PADMINI METAB OLIC PANEL calcium 9.4 mg/dL 8.4-[address] [facility] (Lab) [address] [place], [address], 09/02/2023 21:23:16 09/02/20 23 09/02/2023 COMPR EHENS PADMINI METAB OLIC PANEL total protein 7.4 g/dL 6.3-8. [address] [facility] (Lab) [address] [place], [address], 09/02/2023 21:23:16 09/02/20 23 09/02/2023 COMPR EHENS PADMINI METAB OLIC PANEL albumin 4.2 g/dL 3.4-5. [address] [facility] (Lab) [address] [place], [address], 09/02/2023 21:23:16 09/02/20 23 09/02/2023 COMPR EHENS PADMINI METAB OLIC PANEL globulin 3.2 g/dL 2.6-4. [address] [facility] (Lab) [address] [place], [address], 09/02/2023 21:23:16 09/02/20 23 09/02/2023 COMPR EHENS PADMINI METAB OLIC PANEL A/G ratio 1.3 ratio 1.0-2. [address] [facility] (Lab) [address] [place], [address], 09/02/2023 21:23:16 09/02/20 23 09/02/2023 LIPID PANEL cholesterol 131 mg/dL 140-19 9 low NIH MARILU NSUS RECOM MENDA TION FOR WALE STERO L: ADULT CHILD LOW RISK: <200 <170 BORDE RLINE : <200- 239 ----- HIGH RISK: >240 >[address] [facility] (Lab) [address] [place], [address], 09/02/2023 21:23:21 09/02/20 23 09/02/2023 LIPID PANEL triglyceride s 96 mg/dL 0-150 NIH MARILU NSUS REPOR T RECOM MENDA TION FOR TRIGL YCERI TAMMI: ADULT CHILD LOW RISK: <150 ----- BODER LINE: 150-1 99 ----- HIGH RISK: >200 ----- Not [address] [facility] (Lab) [address] [place], [address], 09/02/2023 21:23:21 09/02/2009/02/2023 LIPID PANEL HDL cholesterol 56 mg/dL 40- Not Available [facility] (Lab) [address] [place], [address], 09/02/2023 21:23:21 09/02/2009/02/2023 LIPID PANEL LDL cholesterol, [...] WILL NOT BE REPOR AJ. Not Available [facility] (Lab) [address] [place], [address], 09/02/2023 21:23:21 Result Notes None recorded. Problems Name Problem SNOMED Code Status Onset Date Resolution Date Notes Provider Name and Address Organization Details Recorded Time Nicotine dependence 55891698 Completed 202206/04/2024 JENNY Amin, [place] [facility] 14:43:59 Obesity 552879907 Active 2022 JENNY Amin, [facility] 14:43:54 Smoker 26620712 Active 2022 JENNY Amin, [facility] 14:43:53 Problem Notes None recorded. Procedures Surgical History Date Name Laterality Status Provider Name and Address Organization Details Recorded Time Cyst Removal completed aMdyson Montana CMA [facility] 08/28/2023 16:21:52 Toe completed Madyson Montana CMA [facility] 08/28/2023 16:27:56 Imaging Results None recorded. Procedure [...] Address Organization Details Last Updated DateTime 3 10594.8 1 g 80 /min 98 % 98 % 97.7 [degF] 32.2 kg/m2 160.02 cm 122 mm[Hg] 74 mm[Hg] Madyson Montana CMA [facility] [employer] [facility] 3 16:14:37 Date Recorded Body height Body mass index (BMI) Body weight Body temperature Heart rate Oxygen saturation Oxygen saturation in Arterial blood by Pulse oximetry Systolic blood pressure Diastolic blood pressure Provider Name and Address Organization Details Last Updated DateTime 4 160.02 cm 32.6 kg/m2 31598 g 97.5 [degF] 88 /min 98 % 98 % 124 mm[Hg] 80 mm[Hg] JENNY Amin [facility] [employer] [facility] 4 14:42:41 Social History Question Answer Notes LastModified by Organization Details LastModified Time Tobacco Smoking Status Current Every Day Smoker Vaping Madyson Montana CMA [facility] 08/28/2023 16:22:55 What Is Your Level Of Alcohol Consumption? Occasional [email or web address] Information not available 08/28/2023 In The 14 Days Before Symptom Onset, Have You Had Close Contact With A Laboratory-confi rmed COVID-19 While That Case Was Ill? No [email or web address] Information not available 08/28/2023 In The 14 Days Before Symptom Onset, Have You Had Close Contact With A Person Who Is Under Investigation For COVID-19 While That Person Was Ill? No [email or web address] Information not available 08/28/2023 Are You Currently Employed? Yes Information not available 08/28/2023 What Type Of Diet Are You Following? REGULAR [email or web address] Information not available 08/28/2023 What Is The Highest Grade Or Level Of School You Have Completed Or The Highest Degree You Have Received? 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 SingleLevelHouse [email or web address] Information not available 08/28/2023 How Many Children Do You Have? 7 [email or web address] Information not available 08/28/2023 Do You Have Any Pets? Yes 3 Dogs, 2 Cats [email or web address] Information not available 08/28/2023 What Is Your Relationship Status? Single [email or web address] Information not available 08/28/2023 Do You Use Your Seat Belt Or Car Seat Routinely? Yes [email or web address] Information not available 08/28/2023 Do You Have Smoke And Carbon Monoxide Detectors In Your Home? Yes Information not available 08/28/2023 At What Age Did You Start Smoking Tobacco? 12 Information not available 08/28/2023 Are You Passively Exposed To Smoke? Yes [email or web address] Information not available 08/28/2023 Are There Any Smokers In Your House? Yes [email or web address] Information not available 08/28/2023 Do You Feel Stressed (tense, Restless, Nervous, Or Anxious, Or Unable To Sleep At Night)? [id number] [email or web address] Information not available 08/28/2023 Do You Use Sunscreen Routinely? Yes [email or web address] Information not available 08/28/2023 Have You Recently Traveled Abroad? No [email or web address] Information not available 08/28/2023 Do You Have Any Dietary Restrictions? No Information not available 08/28/2023 Sex: Unknown Functional Status Question Answer Note LastModified by Organizat ion Details LastModified Time What is your exercise level? Occasional Information not available 08/28/2023 Mental Status None recorded. Family History Nothing Reported. Medical History No medical history recorded. Gynecological HistoryNo gynecological history recorded. Obstetrics History GPAL:G 0 P 0 0 0 0 Past Encounters Encounter ID Performer Location Encounter Start Date Encounter Closed Date Diagnosis/Indication Diagnosis SNOMED-CT Code Diagnosis ICD10 Code Diagnosis Note [id number] Quentin Tapia MD [facility] Internal 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 she [...] Valle Member ID Guarantor Name 08/28/2023 1 [place] [id number] Davril E Hay [id number] Davril E Hay 06/04/2024 1 [place] [id number] Davril E Hay [id number] Davril E Hay Notes Date Note Type Note Provider Name and Address Organization Details Recorded Time 08/28/2023 text/html she is here to establish, not on meds, in good health.she was a smoker, now vaping, can't quit, needs help. Quentin Tapia MD [address] [place] [address], [facility] [address], [place], [address], [facility] 08/28/2023 16:43:08 06/04/2024 text/html Pt is here [...] use it again. Quentin Tapia MD [address] [facility], [facility] [address], [place], [address], [place] [facility] 06/04/2024 15:24:30 OBGyn Episode No OBEpisode recorded.
--- OUTSIDE RECORDS SUMMARY | 2024-12-16 01:08 | XMS_ITS | Referral Summary ---
Author Organization [facility] Physician Of [facility] [address] [place] [address] Care Team Providers Care Facilities Custodian Name Role Phone No, Physician Primary Care Provider [phone] Mariela Mercado MD Unavailable [phone] Allergies Active Allergy Reactions Criticality Noted Date Comments Aspirin Nausea only Low 03/31/2019 Codeine Itching Low 03/31/2019 Hydrocodone Itching Low 03/31/2019 severe Penicillins Unknown 03/31/2019 Hospitalized as a child Medications meloxicam (MOBIC) 7.5 mg tablet TAKE 1 TABLET TWICE DAY NEEDED FOR PAIN 11/23/2023 Active Active Problems Problem Noted Date Diagnosed Date Multinodular goiter 12/10/2023 Assessment & Plan (08/17/2024 11:54 AM NATURAL FABRICATOR): Performed a follow-up thyroid ultrasound in office [...] (03/18/2019): Added automatically from request for surgery [id number] Cyst of skin 03/18/2019 Overview (03/18/2019): Added automatically from request for surgery [id number] Immunizations Immunization Administration Dates Next Due Tdap [...] Comments Blood Pressure 120/84 08/17/2024 10:19 AM NATURAL FABRICATOR Pulse 82 08/17/2024 10:19 AM NATURAL FABRICATOR Temperature 36.3 C (97.4 F) 03/31/2019 8:28 AM CDT Respiratory Rate 16 08/17/2024 10:19 AM NATURAL FABRICATOR Oxygen Saturation 97% 03/31/2019 9:00 AM CDT Inhaled Oxygen Concentration - - Weight 84.8 kg (187 lb) 08/17/2024 10:19 AM NATURAL FABRICATOR Height 160 cm (5' 3 ) 08/17/2024 10:19 AM NATURAL FABRICATOR Body Mass Index 33.13 08/17/2024 10:19 AM NATURAL FABRICATOR Plan of Treatment Not on file Procedures [...] GENERAL ORD ERABLES Final Result [facility] [address] Department [place] [address] from Last 3 Months or Most Recently Relevant to Health Maintenance Insurance [facility] CHOICE OOS * Guarantor: NATALEE DAVIS Account Type Relation to Patient Date of Phone Billing Address Personal/Family Care Teams Facilities Custodian Relationship Specialty Start Date End Date No, Physician PCP - General 02/19/19 Mariela Mercado MD [address] [place] [address] Internal Medicine 02/19/19
--- OUTSIDE RECORDS SUMMARY | 2024-12-16 01:08 | XMS_ITS | Clinical Summary ---
Author Organization [facility] Physician Of [facility] [address] [place] [address] Care Team Providers Care Drag Seiner Name Role Phone No, Physician Primary Care Provider [phone] Mariela Mercado MD Unavailable [phone] Allergies Active Allergy Reactions Criticality Noted Date Comments Aspirin Nausea only Low 03/31/2019 Codeine Itching Low 03/31/2019 Hydrocodone Itching Low 03/31/2019 severe Penicillins Unknown 03/31/2019 Hospitalized as a child Medications meloxicam (MOBIC) 7.5 mg tablet TAKE 1 TABLET TWICE DAY NEEDED FOR PAIN 11/23/2023 Active Active Problems Problem Noted Date Diagnosed Date Multinodular goiter 12/10/2023 Assessment & Plan (08/17/2024 11:54 AM WELDER GAS TUNGSTEN ARC): Performed a follow-up thyroid ultrasound in office [...] (03/18/2019): Added automatically from request for surgery [id number] Cyst of skin 03/18/2019 Overview (03/18/2019): Added automatically from request for surgery [id number] Immunizations Immunization Administration Dates Next Due Tdap [...] Comments Blood Pressure 120/84 08/17/2024 10:19 AM WELDER GAS TUNGSTEN ARC Pulse 82 08/17/2024 10:19 AM WELDER GAS TUNGSTEN ARC Temperature 36.3 C (97.4 F) 03/31/2019 8:28 AM CDT Respiratory Rate 16 08/17/2024 10:19 AM WELDER GAS TUNGSTEN ARC Oxygen Saturation 97% 03/31/2019 9:00 AM CDT Inhaled Oxygen Concentration - - Weight 84.8 kg (187 lb) 08/17/2024 10:19 AM WELDER GAS TUNGSTEN ARC Height 160 cm (5' 3 ) 08/17/2024 10:19 AM WELDER GAS TUNGSTEN ARC Body Mass Index 33.13 08/17/2024 10:19 AM WELDER GAS TUNGSTEN ARC Plan of Treatment Health Maintenance Due Date [...] GENERAL ORD ERABLES Final Result [facility] [id number] [address] Department [place] [address] from Last 3 Months or Most Recently Relevant to Health Maintenance Insurance [employer]ESS [employer] CHOICE OOS * Guarantor: NATALEE DAVIS Account Type Relation to Patient Date of Phone Billing Address Personal/Family Care Teams Drag Seiner Relationship Specialty Start Date End Date No, Physician PCP - General 02/19/19 [place] [address] [place] [id number] Internal Medicine 02/19/19
--- OUTSIDE RECORDS SUMMARY | 2024-12-16 01:08 | XMS_ITS | CONTINUITY OF CARE DOCUMENT ---
Author Name milton rose Address Unknown Organization [facility] Address [address] [place] [address] Phone [phone] Care Team Providers Care Policy Issue Clerk Name Role Phone Jim Wilson MD Unavailable [phone] SHIRIN BROWNING Unavailable SHIRIN BROWNING Unavailable [phone] PROBLEMS Condition Status Date Provider Notes Anxiety active Jim Wilson MD Chest pain-type to be determined active Hank Wilson MD ENCOUNTERS Date Type Provider Location Encounter Diag nosis - In-person encounter Office Visit Jim Wilson MD [facility] AnxietyChest pain-type to be determined VITAL [...] Payer name Policy type / Coverage type [place] red alliance party ID BLUE [facility] Blue [facility] [id number] 1 TREATMENT PLAN Date Name Performer Cardiology:No clear FMHx. Sx is most likely anxiety or MSK. Blood work was negative per hospital records. EKG WNL, will check echo and nuc stress f/u 1 mo. CHOL levels were excellent. Jim Wilosn MD Date Name Stress Exercise Card iolite Complete Echo DLCO - 29564 FRC - 45509 FVC - 04377 HISTORY OF PROCEDURES Procedure Date Procedure Name Provider Procedure Notes S tatus EKG Jim Wilson MD compl eted
--- OUTSIDE RECORDS SUMMARY | 2024-12-16 01:08 | XMS_ITS | Data Portability ---
Author Organization [facility] [place] Address [address] [place] [address] Care Team Providers Care Call Or Contact Centre Team Leader Name Role Phone KALEE, BREE Primary Care Provider [phone] Assessment Encounter Date Assessment Date Assessment LastModified by Organization Details LastModified Time 01/07/2023 01/07/2023 Pt also mentioned she is struggling to lose weight. Referred to Dr Alvarez. [email or web address] Not available 01/07/2023 16:42:04 Plan of Treatment Reminders Order Date Submit Date Provider Last Modified By Organization Details Last Modified Time Details Appointments None recorded. Lab HbA1c (hemoglobin A1c), blood 2022 023 [facility] (Lab), [address], [place], [address], 3 04:54:14 Referral None recorded. Procedures None recorded. Surgeries None recorded. Imaging None recorded. Medication Orders phentermine 15 mg capsule 2022 023 [facility]armacy #[id number], [address], [place], [address], 3 11:04:04 topiramate 50 mg tablet [address]/Pharmacy #[id number], [address], [place], [address], 3 12:52:52 Patient TargetsNo targets recorded. Patient InstructionsNo instructions recorded. Reason for Referral None Reported. Results Created Date Observation Date Name Description Value Unit Range Abnormal Flag Note LastModifiedBy Organization Detail LastModifiedTime 01/08/20 23 01/07/2023 CT/GC ([facility]) , SWAB chlamydia trachomatis, PCR Negati ve negati ve Not Available [facility] (Lab) [address], [place], [address], 01/08/2023 21:19:44 01/08/20 23 01/07/2023 CT/GC ([facility]) , SWAB neisseria gonorrhoeae, PCR Negati ve negati ve Not Available [facility] (Lab) [address], [place], [address], 01/08/2023 21:19:44 01/08/20 23 01/07/2023 VAGIN ITIS/ VAGIN OSIS, DNA PROBE ligia sp. detection, direct probe Negati ve negati ve Not Available [facility] (Lab) [address] [place], [address], 01/08/2023 21:19:44 01/08/20 23 01/07/2023 VAGIN ITIS/ VAGIN OSIS, DNA PROBE gardnerella vag. detection, direct probe Positi ve negati ve abnormal Not Available [facility] (Lab) [address], [place], [address], 01/08/2023 21:19:44 01/08/20 23 01/07/2023 VAGIN ITIS/ VAGIN OSIS, DNA PROBE trichomonas vag. detection, direct probe Negati ve negati ve Not Available [facility] (Lab) [address] [place], [address], 01/08/2023 21:19:44 03/07/20 23 03/07/2023 HEMOG LOBIN [...] Available [facility] (Lab) [address], [place], [address], 03/08/2023 04:54:13 Result Notes None recorded. Procedures Surgical History Date Name Laterality Status Provider Name and Address Organization Details Recorded Time 0 procedure on foot completed [facility] 01/07/2023 17:31:18 8 excision of cyst of epididymis completed [facility] 01/07/2023 17:32:29 1 Carpal tunnel surgery completed [facility] 01/07/2023 17:30:23 0 Carpal tunnel surgery completed [facility] 01/07/2023 17:30:10 7 Colposcopy completed [facility] 01/07/2023 17:15:36 Other completed [facility] 03/05/2023 10:04:31 Imaging Results None recorded. Procedure Notes None recorded. Medical Equipment None Reported. Allergies Allergen ID Allergen Name Allergen Category Reaction Reaction Severity Criticality Documentation Date Start Date Code Code System Note Provider Name and Address Organization Details Recorded Time Product containin g penicilli n (product) medicatio n Not available Not available Not available 01/07/2023 82991 8001 SNOMED [facility]ie [facility] 3 10:04:42 aspirin medicatio n Not available Not available Not available 01/07/2023 1191 RxNorm [facility] 3 10:04:46 26484 Jennifer Aspirin medicatio n nausea Not available Not available 03/05/2023 08984 8 RxNorm Gracie Pathak [facility] 3 10:03:47 13428 Penicilli n Not available Not available Not available Not available 03/05/2023 58309 RxNorm Gracie Pathak [facility] 3 10:03:47 Medications Name Sig Start [...] Updated DateTime 01/07/2023 160.02 cm 31.4 kg/m2 02855.85 g 130 mm[Hg] 88 mm[Hg] Awilda Raymond [facility] 3 17:07:09 Date Recorded Body height Body mass index (BMI) Body weight Systolic blood pressure Diastolic blood pressure Provider Name and Address Organization Details Last Updated DateTime 03/05/2023 160.02 cm 31.2 kg/m2 52528.26 g 119 mm[Hg] 74 mm[Hg] Gracie Pathak [facility] 3 10:15:34 Social History Question Answer Notes LastModified by Organizat ion Details LastModified Time Tobacco Smoking Status Current Every Day Smoker Gracie Zo [facility] 03/05/2023 10:05:52 What Is Your Level Of Alcohol Consumption? Occasional [email or web address] Information not available 01/07/2023 How Many Years Have You Consumed Alcohol? 20 Information not available 03/05/2023 Are You Blind Or Do You Have Difficulty Seeing? No [email or web address] Information not available 01/07/2023 What Is Your Level Of Caffeine Consumption? Moderate Information not available 03/05/2023 In The 14 Days Before Symptom Onset, Have You Had Close Contact With A Laboratory-confir med COVID-19 While That Case Was Ill? No [email or web address] Information not available 01/07/2023 In The 14 Days Before Symptom Onset, Have You Had Close Contact With A Person Who Is Under Investigation For COVID-19 While That Person Was Ill? No [email or web address] Information not available 01/07/2023 Have You Been To An Area Known To Be High Risk For COVID-19? No [email or web address] Information not available 01/07/2023 Are You Deaf Or Do You Have Serious Difficulty Hearing? No Information not available 01/07/2023 What Type Of Diet Are You Following? REGULAR [email or web address] Information not available 01/07/2023 Do You Or Have You Ever Used E-cigarettes Or Vape? Current User Of Electronic Cigarettes Vape, Daily Information not available 03/05/2023 What Is The Highest Grade Or Level Of School You Have Completed Or The Highest Degree You Have Received? 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 Yes Information not available 03/05/2023 Have You Ever Been Counseled For Unhealthy Alcohol Use? No Information not available 03/05/2023 Do You Use Protection During Sex? Usually Information not available 03/05/2023 Do You Use Your Seat Belt Or Car Seat Routinely? Yes [email or web address] Information not available 01/07/2023 Do You Have Smoke And Carbon Monoxide Detectors In Your Home? Yes [email or web address] Information not available 01/07/2023 Do You Feel Stressed (tense, Restless, Nervous, Or Anxious, Or Unable To Sleep At Night)? [id number] Information not available 03/05/2023 Do You Use Any Illicit Or Recreational Drugs? No [email or web address] Information not available 01/07/2023 Do You Use [...] by Organization Details LastModified Time Mother Asthma [email or web address] Not available 01/07/2023 17:22:32 Mother Anxiety disorder [email or web address] Not available 01/07 17:22:44 Mother Depressive disorder [email or web address] Not available 01/07 17:23:02 Mother Malignant tumor of ovary [email or web address] Not available 01/07 17:26:13 Mother Bipolar disorder Not available 2022 10:04:08 Mother Schizophreni a Not available 2022 10:04:08 Mother Mental disorder Not available 2022 10:04:08 Sister Asthma Not available 03/05/2023 10:04:08 Sister Anxiety disorder Not available 2022 10:04:08 Sister Depressive disorder Not available 2022 10:04:08 Sister Malignant tumor of ovary [email or web address] Not available 01/07 17:26:13 Sister Bipolar disorder Not available 2022 10:04:08 Sister Schizophreni a Not available 2022 10:04:08 Paternal Aunt Malignant tumor of lung [email or web address] Not available 01/07 17:26:59 Paternal Aunt Malignant tumor of breast [email or web address] Not available 01/07 17:27:29 Paternal Grandmother Malignant tumor of lung [email or web address] Not available 01/07 17:26:59 Paternal Grandmother Malignant tumor of breast [email or web address] Not available 01/07 17:27:29 Paternal Grandfather Depressive [...] SNOMED-CT Code Diagnosis ICD10 Code Diagnosis Note [id number] Awilda Raymond [place] [address] [address] 01/07/2023 16:03:36 01/07/2023 16:45:09 Vaginitis [id number] N76.0 Discussed use of mild soap like dove or ivory, cotton underwear w/out dye, hypoallerg enic detergent, wipe from front to back, avoid tub baths, keep perineum clean and dry, d/c use of baby wipes. Encouraged daily intake of yogurt or womens health probiotic. Internal and external affirm collected along with STD screen. [id number] Leon Hernandez MD [place] [address] [address] 03/05/2023 09:45:01 03/05/2023 13:07:19 Obesity [id number] E66.9 This patient is a [id number] d female who presents for weight management [...] Valle Member ID Guarantor Name 01/07/2023 1 [facility]: (PPO) [id number] Davril E Hay [id number] Davril E Hay 03/05/2023 1 [facility]: (PPO) [id number] Davril E Hay [id number] Davril E Hay Notes Date Note Type Note Provider Name and Address Organization Details Recorded Time 01/07/2023 text/html Increased vagina l discharge x 2 weeks. Clear, no odor, itching, or irritation.Was seen in urgent care for GI but and was also treated with flagyl for discharge. Finished prescription a couple days ago.Sexually active. Awilda Raymond [facility], [facility] 01/07/2023 17:08:23 03/05/2023 text/html This patient [...] reasonable Leon Hernandez MD [address], [place], [address], [place] - [facility] 03/05/2023 12:58:27 OBGyn Episode Ob Episode Information Episode Created Date Number of Fetuses Patient Bloodtype Patient rh Status Prepregnancy Weight lbs Domestic Partner Domestic Partner Phone Father Name Patch Sander Status 01/08/20 23 1 CLOSED Fetus Data First Name Last Name Admitted to NICU Weight (g) Sex Living Outcome Pediatric Complications Fetus ID Race Codes Race Delivery Type 3259.96 5704 F Full Term 10318 Vaginal Delivery Chandler Calculation Initial Chandler Date [...] Domestic Partner Domestic Partner Phone Father Name Patch Sander Status 01/08/20 23 1 CLOSED Fetus Data First Name Last Name Admitted to NICU Weight (g) Sex Living Outcome Pediatric Complications Fetus ID Race Codes Race Delivery Type , Spontane ous 47058 Chandler Calculation Initial Chandler Date Initial Exam [...] Domestic Partner Domestic Partner Phone Father Name Patch Sander Status 01/08/20 23 1 CLOSED Fetus Data First Name Last Name Admitted to NICU Weight (g) Sex Living Outcome Pediatric Complications Fetus ID Race Codes Race Delivery Type 3486.76 1704 M Full Term [address]009 Vaginal Delivery Chandler Calculation Initial Chandler Date [...] Domestic Partner Domestic Partner Phone Father Name Patch Sander Status 01/08/20 23 1 CLOSED Fetus Data First Name Last Name Admitted to NICU Weight (g) Sex Living Outcome Pediatric Complications Fetus ID Race Codes Race Delivery Type 3826.95 5704 M Full Term [address]44 Vaginal Delivery Chandler Calculation Initial Chandler Date [...] Domestic Partner Domestic Partner Phone Father Name Patch Sander Status 01/08/20 1 CLOSED Fetus Data First Name Last Name Admitted to NICU Weight (g) Sex Living Outcome Pediatric Complications Fetus ID Race Codes Race Delivery Type 4309.12 4 M Full Term [address]7556 Vaginal Delivery Chandler Calculation Initial Chandler Date [...] Domestic Partner Domestic Partner Phone Father Name Patch Sander Status 01/08/20 23 1 CLOSED Fetus Data First Name Last Name Admitted to NICU Weight (g) Sex Living Outcome Pediatric Complications Fetus ID Race Codes Race Delivery Type 2806.37 3704 M Full Term 24467 Vaginal Delivery Chandler Calculation Initial Chandler Date [...] Domestic Partner Domestic Partner Phone Father Name Patch Sander Status 01/08/20 23 1 CLOSED Fetus Data First Name Last Name Admitted to NICU Weight (g) Sex Living Outcome Pediatric Complications Fetus ID Race Codes Race Delivery Type 3515.33 8 M Full Term 10929 Vaginal Delivery Chandler Calculation Initial Chandler Date [...] Domestic Partner Domestic Partner Phone Father Name Patch Sander Status 01/08/20 23 1 CLOSED Fetus Data First Name Last Name Admitted to NICU Weight (g) Sex Living Outcome Pediatric Complications Fetus ID Race Codes Race Delivery Type 2919.77 1704 M Full Term [address]85 Vaginal Delivery Chandler Calculation Initial Chandler Date [...]
[2024-12-16 13:00] VITALS: BP 118/66; PULSE 72; RESP 16; TEMP 36.8; O2SAT 100
--- NOTE | 2024-12-16 13:16 | PM.IMHP ---
H&P: HPI History of Present Illness Date/Time: 12/16/24 13:16 Chief Complaint: IUD broke Narrative: 44 y/o who had a Paragard IUD removed in the office on 12/08/24. Unfortunately, one arm of the IUD broke off and remains in situ. I have recommended surgical evaluation and treatment. Review of Systems Review of Systems: All systems reviewed & are unremarkable except as noted in HPI and below PMFSH Past Medical History Medical History Tear meniscus knee Acute pain of left knee Smoking history Depression Patella-femoral syndrome Hallux rigidus of right foot Anxiety Asthma Bilateral knee pain Chronic headaches Surgical History Surgical History History of carpal tunnel release Family History Family History Unknown Hypertension Arthritis Cancer Social History Social History Smoking packs per day: 2 Smoking cigarettes per day: 40.0 Years smoked: 26 Smoking pack-years: 52.00 Smoking status: Current every day smoker Tobacco type: e-cigarettes/vaping Additional smoking assessment comments: QUIT 1.5 YEARS AGO Alcohol intake: current Alcohol use details: Occasional Substance use type: marijuana Living arrangements: with family Spiritual care concerns: No Meds Home Medications and Allergies Home Medications ?Medication ?Instructions ?Recorded ?Confirmed ?Type ascorbic acid 125 mg-collagen, 1 cap PO DAILY 03/29/20 12/11/24 History hydrolyzed 740 mg capsule (Collagen Plus Vitamin C) multivitamin (Daily Multi-Vitamin 1 tablet PO DAILY 12/11/24 12/11/24 History tablet) Allergies Allergy/AdvReac Type Severity Reaction Status Date / Time aspirin Allergy Mild Nausea and Verified 12/16/24 13:13 Vomiting Penicillins Allergy Unknown UNKNOWN Verified 12/16/24 13:13 REACTION- OCCURED CHILD Exam Const: Orientation/consciousness: patient oriented x3 Other: Well-developed, well-nourished female in no acute distress. Neck: Thyroid: thyroid normal Lymphatic: no lymphadenopathy noted (in neck, axilla or inguinal nodes) Resp: Effort & Inspection: normal respiratory effort Auscultation: clear to auscultation bilaterally Cardio: Rate: regular rate Rhythm: regular rhythm Heart sounds: S1 normal heart sound present and S2 normal heart sound present GI: Other: ABD: Soft, nontender, nondistended. No guarding or rebound tenderness. No hepatosplenomegaly. : General: Yes no CVA tenderness Other: External genitalia: normal female hair distribution, without lesion. Urethral meatus: no lesion, non prolapsed. Bladder: no mass, nontender Vagina: well-estrogenized, without lesion or discharge. No cystocele or rectocele. Cervix: no lesion or discharge. Uterus: small, anteverted, freely mobile, nontender Adnexa: no mass or tenderness. Anus/perineum: no lesions, nontender Back/Spine/Pelvis: Back: no CVA tenderness Skin: General skin exam: normal color and no rashes or lesions noted Neuro: General: patient oriented x3 Extrem: Other: Extremities: nontender with no edema Psych: Mental Status: mental status grossly normal Affect: normal affect Assessment and Plan Assessment and plan (1) Retained intrauterine contraceptive device (IUD): Code(s): T83.39XA - Other mechanical complication of intrauterine contraceptive device, initial encounter Status: Acute Assessment and Plan: A: Retained portion of IUD. P: I have offered hysteroscopy and removal of IUD. In the event that the IUD fragment is not visible hysteroscopically, I have also offered possible diagnostic laparoscopy with removal of IUD. She understands risks of surgery to include risks of anesthesia, risks of pain, infection, bleeding, blood products, thromboembolic phenomena and damage to adjacent structures such as bowel, bladder, ureters, blood vessels and nerves. She understands all these risks and elects to proceed with surgery.
[2024-12-16] MEDS: LACTATED RINGERS 1,000 ML 30 ML IV CONT (13:20)
[2024-12-16] MEDS: KETOROLAC 15 MG/ML VIAL (*BKC) IV PUSH (13:25)
[2024-12-16] MEDS: ACETAMINOPHEN 500 MG TABLET 1000 MG PO (13:25)
[2024-12-16 13:43] LABS: BEDSIDEPREGUCG Negative (Negative)
--- NOTE | 2024-12-16 13:50 | WPDHPUPDATE1 ---
History and Physical Update Update Date/Time: 12/16/24 13:50 History and Physical has been reviewed, including an updated exam of the patient. There are NO changes in the patient's condition. Risks, benefits, and alternatives have been discussed and questions answered. Patient agrees to proceed with procedure.
--- NOTE | 2024-12-16 14:42 | WPDANESEPPF ---
Anes - Initial Pre Proc Eval Procedure: Operation Date: 12/16/24 15:00 Proposed Procedures p Hysteroscopy Removal of Malpositioned Intrauterine Device, Possible Laparoscopic Removal - Immanuel Zurita MD Date/Time: 12/16/24 14:42 Surgeon: Immanuel Zurita MD Pre Op Diagnosis: misplaced IUD Patient Data Age: 44 Gender: F Height: 1.6 m Weight: 72.4 kg Last Vital Signs Temp 36.8 C 12/16/24 13:00 Pulse 72 12/16/24 13:00 Resp 16 12/16/24 13:00 BP 118/66 12/16/24 13:00 Pulse Ox 100 12/16/24 13:00 O2 Del Method Room Air 12/16/24 13:00 Allergies Allergy/AdvReac Type Severity Reaction Status Date / Time aspirin Allergy Mild Nausea and Verified 12/16/24 13:37 Vomiting Penicillins Allergy Unknown UNKNOWN Verified 12/16/24 13:37 REACTION- OCCURED CHILD Home Medications ?Medication ?Instructions ?Recorded ?Confirmed ?Type ascorbic acid 125 mg-collagen, 1 cap PO DAILY 03/29/20 12/16/24 History hydrolyzed 740 mg capsule (Collagen Plus Vitamin C) multivitamin (Daily Multi-Vitamin 1 tablet PO DAILY 12/11/24 12/16/24 History tablet) Laboratory Tests 12/16/24 13:15 POC Urine HCG, Qual Negative (Negative) Patient hx anesthesia problems: none Family hx anesthesia problems: none Results Review: All pre-operative results and documents have been reviewed as part of the pre-operative evaluation. [facility]LY [facility] Past Medical History Medical History Tear meniscus knee Acute pain of left knee Smoking history Depression Patella-femoral syndrome Hallux rigidus of right foot Anxiety Asthma Bilateral knee pain Chronic headaches Surgical History Surgical History History of carpal tunnel release Family History Family History Unknown Hypertension Arthritis Cancer Social History Social History Smoking packs per day: 2 Smoking cigarettes per day: 40.0 Years smoked: 26 Smoking pack-years: 52.00 Smoking status: Current every day smoker Tobacco type: e-cigarettes/vaping Additional smoking assessment comments: QUIT 1.5 YEARS AGO Alcohol intake: current Alcohol use details: Occasional Substance use type: marijuana Living arrangements: with family Spiritual care concerns: No Anes - Eval Final PreProcedure Day of Procedure 12/16/24 14:42 Patient weight: overweight Heart: regular rate and rhythm Lungs: clear to auscultation Airway: Mallampati scale class II Neurological: alert and oriented Last oral intake: >/= 8 hours ASA classification: II Emergent: no Anesthetic plan: proceed Anesthesia type and monitoring: general ETT and standard monitoring Results Review: All pre-operative results and documents have been reviewed as part of the pre-operative evaluation. Informed Consent: The patient's anesthetic plan and its attendant risks and benefits were discussed with the patient/family/POA. Questions were solicited and answers provided to the satisfaction of the patient/family/POA.
[2024-12-16] MEDS: LIDOCAINE 1% LOCAL INJ 10 ML VIAL INFILTRATE (15:37)
[2024-12-16 15:45] VITALS: BP 89/42; PULSE 56; RESP 14; O2SAT 100
--- NOTE | 2024-12-16 15:49 | W.PM.PROC2 ---
Procedure Note - Detailed Date of Procedure 12/16/24 Pre-op Diagnosis Incompletely removed IUD Post-op Diagnosis Same Procedure Performed Hysteroscopic removal of arm of IUD. Surgeon Immanuel Zurita MD Anesthesia MAC and Local (1% lidocaine) Findings Arm of IUD was partially embedded into the right lateral endometrium. Both tubal ostia seen. Otherwise, endometrial cavity unremarkable. Description of Procedure The patient was taken to the operating room where she was prepared and draped in the usual sterile fashion in the dorsal lithotomy position. The bladder was drained with a red rubber catheter. A sterile speculum was placed into the vagina. The anterior lip of the cervix was grasped with single-tooth tenaculum. Ten mL of 1% lidocaine was administered in a paracervical block. The cervix was then gently dilated using Hegar dilators until a 7 mm dilator could be passed. Hysteroscopy was performed using sterile saline as a distention medium. Findings are as noted above. The hysteroscopic grasper was advanced and the IUD arm was able to be teased partway out of its position. The hysteroscope was withdrawn and a polyp forceps was advanced. The IUD fragment was grasped and easily removed, intact, and discarded. A second look with the hysteroscope was taken. Sharp curettage was then performed, and endometrial curettings were collected on a Telfa pad and passed off to be sent to pathology. Hemostasis was excellent. Sponge, lap, needle and instrument counts were correct. The patient was awakened and taken to the recovery room in stable condition. I was present and scrubbed through the entire procedure. Estimated Blood Loss 5 Drains No Packing No Pathology Yes (Endometrial curettings) Complications None Condition Stable Disposition PACU
[2024-12-16 16:05] VITALS: BP 95/61; PULSE 53; RESP 14; O2SAT 100
[2024-12-16 16:30] VITALS: BP 121/76; PULSE 65; RESP 14
== END 2024-12-16 16:35 | disposition home or self-care (01) ==
PROVIDERS: Visit Provider Obstetrics & Gynecology
PROC: 0UDB8ZZ Extraction of Endometrium, Via Natural or Artificial Opening Endoscopic (ICD-10-PCS; CPT 58558; principal; 2024-12-16 15:00)
DX: T83.39XA Other mechanical complication of intrauterine contraceptive device, initial encounter (principal); G89.18 Other acute postprocedural pain; Y83.8 Other surgical procedures as the cause of abnormal reaction of the patient, or of later complication, without mention of misadventure at the time of the procedure; J45.909 Unspecified asthma, uncomplicated; F41.9 Anxiety disorder, unspecified; G44.89 Other headache syndrome; F32.A Depression, unspecified; F12.90 Cannabis use, unspecified, uncomplicated; Z98.890 Other specified postprocedural states; Z87.891 Personal history of nicotine dependence; Z80.9 Family history of malignant neoplasm, unspecified
CPT/HCPCS: 58562; 88305; A9270; J1885; J2003; J2250; J2405; J2704; J3010; J7120

== ENCOUNTER 2025-01-13 00:52 | Day surgery (SDC) | payer BC, SELFPAY ==
[2024-12-30 13:16] VITALS: BMI 27.5
--- OUTSIDE RECORDS SUMMARY | 2025-01-13 00:55 | XMS_ITS | Data Portability ---
Author Organization [facility] [employer], Main Office Address [address] [place] [address] Assessment No assessment recorded. Plan of Treatment Reminders Order Date Submit Date Provider Last Modified By Organization Details Last Modified Time Details Appointments None recorded. Lab CBC w/ auto diff 2022 023 [facility], [address] [place] [address], [id number], 3 19:44:41 CMP, serum or plasma 2022 023 [facility], [address] [place] [address], [id number], 3 21:23:16 lipid panel, serum 2022 023 [facility], [address] [place] [address], [id number], 3 21:23:21 Referral None recorded. Procedures None recorded. Surgeries None recorded. Imaging XR, chest, 2 view 2022 023 [email or web address], [address], [address], [place], [address], 4 09:50:26 Medication Orders varenicline tartrate 0.5 mg (11)-1 mg (42) tablets in a dose pack 2023 024 [facility]armacy #[id number], [address], [place], [address], 4 15:23:43 varenicline tartrate 1 mg tablet 2023 024 [email or web address] [facility]/Pharmacy #[id number], [address], [place], [address], 4 10:46:34 varenicline tartrate 0.5 mg (11)-1 mg (42) tablets in a dose pack 2022 023 [place]/Pharmacy #[id number], [address], [place], [address], 3 16:36:05 Patient TargetsNo targets recorded. Patient InstructionsNo instructions recorded. Reason for Referral None Reported. Results Created Date Observation Date Name Description Value Unit Range Abnormal Flag Note LastModifiedBy Organization Detail LastModifiedTime 09/02/2009/02/2023 CBC/C OMPLE TE BLD COUNT W/DIF F white blood cells 7.0 x10'3 /uL 4.2-10 .8 Not Available [facility] (Lab) [address] [place], [address], 09/02/2023 19:44:41 09/02/20 23 09/02/2023 CBC/C OMPLE TE BLD COUNT W/DIF F red blood cells 4.33 x10'6 /uL 3.80-5 .20 Not Available [facility] (Lab) [address] [place], [address], 09/02/2023 19:44:41 09/02/20 23 09/02/2023 CBC/C OMPLE TE BLD COUNT W/DIF F hemoglobin 13.8 g/dL 12.0-1 5.6 Not Available [facility] (Lab) [address] [place], [address], 09/02/2023 19:44:41 09/02/20 23 09/02/2023 CBC/C OMPLE TE BLD COUNT W/DIF F hematocrit 43.1 % 35.7-4 5.7 Not Available [facility] (Lab) [address] [place], [address], 09/02/2023 19:44:41 09/02/20 23 09/02/2023 CBC/C OMPLE TE BLD COUNT W/DIF F mean red cell volume 99.5 fL 82.0-9 9.0 high Not Available [facility] (Lab) [address] [place], [address], 09/02/2023 19:44:41 09/02/20 23 09/02/2023 CBC/C OMPLE TE BLD COUNT W/DIF F mean red cell hemoglobin 31.9 pg 27.0-3 3.0 Not Available [facility] (Lab) [address] [place], [address], 09/02/2023 19:44:41 09/02/20 23 09/02/2023 CBC/C OMPLE TE BLD COUNT W/DIF F mean RBC HGB concentratio n 32.0 g/dL 31.0-3 6.0 Not Available [facility] (Lab) [address] [place], [address], 09/02/2023 19:44:41 09/02/20 23 09/02/2023 CBC/C OMPLE TE BLD COUNT W/DIF F red cell distribution width 12.8 % 11.8-1 5.5 Not Available [facility] (Lab) [address] [place], [address], 09/02/2023 19:44:41 09/02/20 23 09/02/2023 CBC/C OMPLE TE BLD COUNT W/DIF F platelets 246 x10'3 /uL 150-40 0 Not Available [facility] (Lab) [address] [place], [address], 09/02/2023 19:44:41 09/02/20 23 09/02/2023 CBC/C OMPLE TE BLD COUNT W/DIF F mean platelet volume 11.5 fL 9.0-12 .4 Not Available [facility] (Lab) [address] [place], [address], 09/02/2023 19:44:41 09/02/20 23 09/02/2023 CBC/C OMPLE TE BLD COUNT W/DIF F neutrophils 61.5 % 39.0-7 2.0 Not Available [facility] (Lab) [address] [place], [address], 09/02/2023 19:44:41 09/02/20 23 09/02/2023 CBC/C OMPLE TE BLD COUNT W/DIF F lymphocytes 26.2 % 16.0-4 7.0 Not Available [facility] (Lab) [address] [place], [address], 09/02/2023 19:44:41 09/02/20 23 09/02/2023 CBC/C OMPLE TE BLD COUNT W/DIF F monocytes 10.3 % 5.0-12 .0 Not Available [facility] (Lab) [address] [place], [address], 09/02/2023 19:44:41 09/02/20 23 09/02/2023 CBC/C OMPLE TE BLD COUNT W/DIF F eosinophils 1.0 % 1.0-7. 0 Not Available [facility] (Lab) [address] [place], [address], 09/02/2023 19:44:41 09/02/20 23 09/02/2023 CBC/C OMPLE TE BLD COUNT W/DIF F basophils 0.6 % 0.0-2. 0 Not Available [facility] (Lab) [address] [place], [address], 09/02/2023 19:44:41 09/02/20 23 09/02/2023 CBC/C OMPLE TE BLD COUNT W/DIF F immature granulocytes 0.4 % 0.00-0 .50 Not Available [facility] (Lab) [address] [place], [address], 09/02/2023 19:44:41 09/02/20 23 09/02/2023 CBC/C OMPLE TE BLD COUNT W/DIF F neutrophils, absolute count 4.29 x10'3 /uL 1.5-8. 0 Not Available [facility] (Lab) [address] [place], [address], 09/02/2023 19:44:41 09/02/20 23 09/02/2023 CBC/C OMPLE TE BLD COUNT W/DIF F lymphocytes, absolute count 1.83 x10'3 /uL 1.07-3 .43 Not Available [facility] (Lab) [address] [place], [address], 09/02/2023 19:44:41 09/02/20 23 09/02/2023 CBC/C OMPLE TE BLD COUNT W/DIF F monocytes, absolute count 0.72 x10'3 /uL 0.29-0 .99 Not Available [facility] (Lab) [address] [place], [address], 09/02/2023 19:44:41 09/02/20 23 09/02/2023 CBC/C OMPLE TE BLD COUNT W/DIF F eosinophils, absolute count 0.07 x10'3 /uL 0.02-0 .53 Not Available [facility] (Lab) [address] [place], [address], 09/02/2023 19:44:41 09/02/20 23 09/02/2023 CBC/C OMPLE TE BLD COUNT W/DIF F basophils, absolute count 0.04 x10'3 /uL 0.01-0 .08 Not Available [facility] (Lab) [address] [place], [address], 09/02/2023 19:44:41 09/02/20 23 09/02/2023 CBC/C OMPLE TE BLD COUNT W/DIF F immature granulocytes ,absolute 0.03 x10'3 /uL 0.00-0 .05 Not Available [facility] (Lab) [address] [place], [address], 09/02/2023 19:44:41 09/02/20 23 09/02/2023 CBC/C OMPLE TE BLD COUNT W/DIF F nucleated red blood cells 0.0 % -0 Not Available [facility] (Lab) [address] [place], [address], 09/02/2023 19:44:41 09/02/20 23 09/02/2023 CBC/C OMPLE TE BLD COUNT W/DIF F NRBC# 0.00 x10'3 /uL Not Available [facility] (Lab) [address] [place], [address], 09/02/2023 19:44:41 09/02/20 23 09/02/2023 COMPR EHENS PADMINI METAB OLIC PANEL sodium 140 mmol/ L 137-14 5 Not Available [facility] (Lab) [address] [place], [address], 09/02/2023 21:23:16 09/02/20 23 09/02/2023 COMPR EHENS PADMINI METAB OLIC PANEL potassium 4.4 mmol/ L 3.5-5. 1 Not Available [facility] (Lab) [address] [place], [address], 09/02/2023 21:23:16 09/02/20 23 09/02/2023 COMPR EHENS PADMINI METAB OLIC PANEL chloride 106 mmol/ L 98-107 Not Available [facility] (Lab) [address] [place], [address], 09/02/2023 21:23:16 09/02/20 23 09/02/2023 COMPR EHENS PADMINI METAB OLIC PANEL carbon dioxide 27 mmol/ L 22-30 Not Available [facility] (Lab) [address] [place], [address], 09/02/2023 21:23:16 09/02/20 23 09/02/2023 COMPR EHENS APDMINI METAB OLIC PANEL anion gap 11.4 mmol/ L 14-22 low Not Available [facility] (Lab) [address] [place], [address], 09/02/2023 21:23:16 09/02/20 23 09/02/2023 COMPR EHENS PADMINI METAB OLIC PANEL glucose 98 mg/dL 70-99 Not Available [facility] (Lab) [address] [place], [address], 09/02/2023 21:23:16 09/02/20 23 09/02/2023 COMPR EHENS PADMINI METAB OLIC PANEL BUN 10 mg/dL 8-19 Not Available [facility] (Lab) [address] [place], [address], 09/02/2023 21:23:16 09/02/20 23 09/02/2023 COMPR EHENS PADMINI METAB OLIC PANEL creatinine 0.78 mg/dL 0.66-1 .25 Not Available [facility] (Lab) [address] [place], [address], 09/02/2023 21:23:16 09/02/20 23 09/02/2023 COMPR EHENS PADMINI METAB OLIC PANEL GFR >60 Refer ence Range : [place] ge GFR Healt hy Adult : >60 [...] calcu lator is avail able on the [facility] websi te: https ://cherelle w.kid katie.o rg/pr ofess ional s/kdo qi/gf r_cal culat or Not Available [facility] (Lab) [address] [place], [address], 09/02/2023 21:23:16 09/02/20 23 09/02/2023 COMPR EHENS PADMINI METAB OLIC PANEL alkaline phosphatase 47 U/L 38-126 Not Available [facility] (Lab) [address] [place], [address], 09/02/2023 21:23:16 09/02/20 23 09/02/2023 COMPR EHENS PADMINI METAB OLIC PANEL alanine aminotransfe rase 17 U/L 0-35 Not Available [facility] (Lab) [address] [place], [address], 09/02/2023 21:23:16 09/02/20 23 09/02/2023 COMPR EHENS PADMINI METAB OLIC PANEL aspartate aminotransfe rase 24 U/L 15-37 Not Available [facility] (Lab) [address] [place], [address], 09/02/2023 21:23:16 09/02/20 23 09/02/2023 COMPR EHENS PADMINI METAB OLIC PANEL bilirubin, total 1.00 mg/dL 0.20-1 .30 Not Available [facility] (Lab) [address] [place], [address], 09/02/2023 21:23:16 09/02/20 23 09/02/2023 COMPR EHENS PADMINI METAB OLIC PANEL calcium 9.4 mg/dL 8.4-10 .2 Not Available [facility] (Lab) [address] [place], [address], 09/02/2023 21:23:16 09/02/20 23 09/02/2023 COMPR EHENS PADMINI METAB OLIC PANEL total protein 7.4 g/dL 6.3-8. 2 Not Available [facility] (Lab) [address] [place], [address], 09/02/2023 21:23:16 09/02/20 23 09/02/2023 COMPR EHENS PADMINI METAB OLIC PANEL albumin 4.2 g/dL 3.4-5. 0 Not Available [facility] (Lab) [address] [place], [address], 09/02/2023 21:23:16 09/02/20 23 09/02/2023 COMPR EHENS PADMINI METAB OLIC PANEL globulin 3.2 g/dL 2.6-4. 2 Not Available [facility] (Lab) [address] [place], [address], 09/02/2023 21:23:16 09/02/20 23 09/02/2023 COMPR EHENS PADMINI METAB OLIC PANEL A/G ratio 1.3 ratio 1.0-2. 0 Not Available [facility] (Lab) [address] [place], [address], 09/02/2023 21:23:16 09/02/20 23 09/02/2023 LIPID PANEL cholesterol 131 mg/dL 140-19 9 low NIH MARILU NSUS RECOM MENDA TION FOR WALE STERO L: ADULT CHILD LOW RISK: <200 <170 BORDE RLINE : <200- 239 ----- HIGH RISK: >240 >200 Not Available [facility] (Lab) [address] [place], [address], 09/02/2023 21:23:21 09/02/20 23 09/02/2023 LIPID PANEL triglyceride s 96 mg/dL 0-150 NIH MARILU NSUS REPOR T RECOM MENDA TION FOR TRIGL YCERI TAMMI: ADULT CHILD LOW RISK: <150 ----- BODER LINE: 150-1 99 ----- HIGH RISK: >200 ----- Not Available [facility] (Lab) [address] [place], [address], 09/02/2023 21:23:21 09/02/2009/02/2023 LIPID PANEL HDL cholesterol 56 mg/dL 40- Not Available [facility] (Lab) [address] [place], [address], 09/02/2023 21:23:21 09/02/2009/02/2023 LIPID PANEL LDL cholesterol, [...] WILL NOT BE REPOR AJ. Not Available [facility] (Lab) [address] [place], [address], 09/02/2023 21:23:21 Result Notes None recorded. Problems Name Problem SNOMED Code Status Onset Date Resolution Date Notes Provider Name and Address Organization Details Recorded Time Nicotine dependence 35129271 Completed 202206/04/2024 JENNY Amin, [place] - [facility] [employer] 4 14:43:59 Obesity 679363295 Active 2022 JENNY Amin, [facility] 14:43:54 Smoker 17956930 Active 2022 JENNY Amin, [facility] 14:43:53 Problem Notes None recorded. Procedures Surgical History Date Name Laterality Status Provider Name and Address Organization Details Recorded Time Cyst Removal completed Madyson Montana CMA [facility] 08/28/2023 16:21:52 Toe completed Madyson Montana CMA [facility] 08/28/2023 16:27:56 Imaging Results None recorded. Procedure [...] Address Organization Details Last Updated DateTime 3 80253.8 1 g 80 /min 98 % 98 % 97.7 [degF] 32.2 kg/m2 160.02 cm 122 mm[Hg] 74 mm[Hg] Madyson Montana CMA [facility] [employer] [facility] 3 16:14:37 Date Recorded Body height Body mass index (BMI) Body weight Body temperature Heart rate Oxygen saturation Oxygen saturation in Arterial blood by Pulse oximetry Systolic blood pressure Diastolic blood pressure Provider Name and Address Organization Details Last Updated DateTime 4 160.02 cm 32.6 kg/m2 48486 g 97.5 [degF] 88 /min 98 % 98 % 124 mm[Hg] 80 mm[Hg] JENNY Amin [facility] [employer] [facility] 4 14:42:41 Social History Question Answer Notes LastModified by Organization Details LastModified Time Tobacco Smoking Status Current Every Day Smoker Vaping Madyson Montana CMA [facility] 08/28/2023 16:22:55 What Is Your Level Of Alcohol Consumption? Occasional [email or web address] Information not available 08/28/2023 In The 14 Days Before Symptom Onset, Have You Had Close Contact With A Laboratory-confi rmed COVID-19 While That Case Was Ill? No [email or web address] Information not available 08/28/2023 In The 14 Days Before Symptom Onset, Have You Had Close Contact With A Person Who Is Under Investigation For COVID-19 While That Person Was Ill? No [email or web address] Information not available 08/28/2023 Are You Currently Employed? Yes [email or web address] Information not available 08/28/2023 What Type Of Diet Are You Following? REGULAR [email or web address] Information not available 08/28/2023 What Is The Highest Grade Or Level Of School You Have Completed Or The Highest Degree You Have Received? 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 SingleLevelHouse [email or web address] Information not available 08/28/2023 How Many Children Do You Have? 7 [email or web address] Information not available 08/28/2023 Do You Have Any Pets? Yes 3 Dogs, 2 Cats [email or web address] Information not available 08/28/2023 What Is Your Relationship Status? Single [email or web address] Information not available 08/28/2023 Do You Use Your Seat Belt Or Car Seat Routinely? Yes [email or web address] Information not available 08/28/2023 Do You Have Smoke And Carbon Monoxide Detectors In Your Home? Yes [email or web address] Information not available 08/28/2023 At What Age Did You Start Smoking Tobacco? 12 Information not available 08/28/2023 Are You Passively Exposed To Smoke? Yes [email or web address] Information not available 08/28/2023 Are There Any Smokers In Your House? Yes [email or web address] Information not available 08/28/2023 Do You Feel Stressed (tense, Restless, Nervous, Or Anxious, Or Unable To Sleep At Night)? CW14026-6 [email or web address] Information not available 08/28/2023 Do You Use Sunscreen Routinely? Yes [email or web address] Information not available 08/28/2023 Have You Recently Traveled Abroad? No [email or web address] Information not available 08/28/2023 Do You Have Any Dietary Restrictions? No [email or web address] Information not available 08/28/2023 Sex: Unknown Functional [...] SNOMED-CT Code Diagnosis ICD10 Code Diagnosis Note [id number] Quentin Tapia MD [facility] [address] [place] [address] 08/28/2023 15:54:29 08/28/2023 16:45:44 Adult health examination 658744732 Z00.00 Z13.220 mammogram gets at gyne Nicotine dependence 5629 4008 F17.200 Obesity 586570390 E66.9 advised to lose, watch carbs Smoker 21417707 F17.638 [id number] Quentin Tapia MD [facility] [address] [place] [address] 06/04/2024 14:37:32 06/04/2024 15:15:37 Adult health examination 933289319 Z00.00 Z13.220 Mammogram- BOOK JOGGER - DUEPap- 2022- NLFLU- NEVER Smoker 84461161 F17.200 willing to quit Obesity 099556978 E66.9 she wants to start zepbound. she [...] Valle Member ID Guarantor Name 08/28/2023 1 [place] [id number] Davril E Hay [id number] Davril E Hay 06/04/2024 1 [place] [id number] Davril E Hay [id number] Davril E Hay Notes Date Note Type Note Provider Name and Address Organization Details Recorded Time 08/28/2023 text/html she is here to establish, not on meds, in good health.she was a smoker, now vaping, can't quit, needs help. Quentin Tapia MD [address] [place] [address], [facility] [address], [place], [address], [facility] [employer] 08/28/2023 16:43:08 06/04/2024 text/html Pt is here [...] use it again. Quentin Tapia MD [address] [facility], [facility] [address], [place], [address], [place] [facility] 06/04/2024 15:24:30 OBGyn Episode No OBEpisode recorded.
--- OUTSIDE RECORDS SUMMARY | 2025-01-13 00:55 | XMS_ITS | Referral Summary ---
Author Organization [facility] [address] [place] [address] Care Team Providers Care Document Review Attorney Name Role Phone No, Physician Primary Care Provider [phone] Mariela Mercado MD Unavailable [phone] Allergies Active Allergy Reactions Criticality Noted Date Comments Aspirin Nausea only Low 03/31/2019 Codeine Itching Low 03/31/2019 Hydrocodone Itching Low 03/31/2019 severe Penicillins Unknown 03/31/2019 Hospitalized as a child Medications meloxicam (MOBIC) 7.5 mg tablet TAKE 1 TABLET TWICE DAY NEEDED FOR PAIN 11/23/2023 Active Active Problems Problem Noted Date Diagnosed Date Multinodular goiter 12/10/2023 Assessment & Plan (08/17/2024 11:54 AM FINANCIAL REPORTING DIRECTOR): Performed a follow-up thyroid ultrasound in office [...] (03/18/2019): Added automatically from request for surgery [id number] Cyst of skin 03/18/2019 Overview (03/18/2019): Added automatically from request for surgery [id number] Immunizations Immunization Administration Dates Next Due Tdap [...] Comments Blood Pressure 120/84 08/17/2024 10:19 AM FINANCIAL REPORTING DIRECTOR Pulse 82 08/17/2024 10:19 AM FINANCIAL REPORTING DIRECTOR Temperature 36.3 C (97.4 F) 03/31/2019 8:28 AM CDT Respiratory Rate 16 08/17/2024 10:19 AM FINANCIAL REPORTING DIRECTOR Oxygen Saturation 97% 03/31/2019 9:00 AM CDT Inhaled Oxygen Concentration - - Weight 84.8 kg (187 lb) 08/17/2024 10:19 AM FINANCIAL REPORTING DIRECTOR Height 160 cm (5' 3 ) 08/17/2024 10:19 AM FINANCIAL REPORTING DIRECTOR Body Mass Index 33.13 08/17/2024 10:19 AM FINANCIAL REPORTING DIRECTOR Plan of Treatment Not on file Procedures [...] GENERAL ORD ERABLES Final Result [facility] [id number] Department [place] [address] from Last 3 Months or Most Recently Relevant to Health Maintenance Insurance [facility] CHOICE OOS * Guarantor: NATALEE DAVIS Account Type Relation to Patient Date of Phone Billing Address Personal/Family Care Teams Document Review Attorney Relationship Specialty Start Date End Date No, Physician PCP - General 02/19/19 Mariela Mercado MD [address] [place] [address] Internal Medicine 02/19/19
--- OUTSIDE RECORDS SUMMARY | 2025-01-13 00:55 | XMS_ITS | Clinical Summary ---
Author Organization [facility] Phys[facility] Of [facility] [address] [place] [address] Care Team Providers Care Cable Driller Name Role Phone No, Physician Primary Care Provider [phone] Mariela Mercado MD Unavailable [phone] Allergies Active Allergy Reactions Criticality Noted Date Comments Aspirin Nausea only Low 03/31/2019 Codeine Itching Low 03/31/2019 Hydrocodone Itching Low 03/31/2019 severe Penicillins Unknown 03/31/2019 Hospitalized as a child Medications meloxicam (MOBIC) 7.5 mg tablet TAKE 1 TABLET TWICE DAY NEEDED FOR PAIN 11/23/2023 Active Active Problems Problem Noted Date Diagnosed Date Multinodular goiter 12/10/2023 Assessment & Plan (08/17/2024 11:54 AM INSTRUCTOR OF SPANISH): Performed a follow-up thyroid ultrasound in office [...] (03/18/2019): Added automatically from request for surgery [id number] Cyst of skin 03/18/2019 Overview (03/18/2019): Added automatically from request for surgery [id number] Immunizations Immunization Administration Dates Next Due Tdap [...] Comments Blood Pressure 120/84 08/17/2024 10:19 AM INSTRUCTOR OF SPANISH Pulse 82 08/17/2024 10:19 AM INSTRUCTOR OF SPANISH Temperature 36.3 C (97.4 F) 03/31/2019 8:28 AM CDT Respiratory Rate 16 08/17/2024 10:19 AM INSTRUCTOR OF SPANISH Oxygen Saturation 97% 03/31/2019 9:00 AM CDT Inhaled Oxygen Concentration - - Weight 84.8 kg (187 lb) 08/17/2024 10:19 AM INSTRUCTOR OF SPANISH Height 160 cm (5' 3 ) 08/17/2024 10:19 AM INSTRUCTOR OF SPANISH Body Mass Index 33.13 08/17/2024 10:19 AM INSTRUCTOR OF SPANISH Plan of Treatment Health Maintenance Due Date Last Done Comments Breast Cancer Screening-Mammogram 1978 Cervical Cancer Screening 1978 Colon Cancer Screening-Colonoscopy 1978 Depression Screening 1978 Hepatitis B Screening 1996 Regular Well Visit/Exam 18-64 1996 Pneumococcal vaccine <65 (1 of 2 - PCV) 1997 DTaP/Tdap/Td Vaccine (2 - Td or Tdap) 05/05/2025 05/05/2015 Influenza Vaccine (Season Ended) 2025 Hepatitis C Screening Completed 03/31/2019 HPV Vaccines [...] GENERAL ORD ERABLES Final Result [facility] [id number] [place] [address] from Last 3 Months or Most Recently Relevant to Health Maintenance Insurance ACCESS BLUE ACC CHOICE OOS Member Subscriber Plan / Payer (Ef fective 2022-Present) Name:Natalee Davis Relation to Subscriber:Self Name:Natalee Davis Payer ID:[id number] ([facility]) Type:[facility] Address: [facility] [id number] [place] [address] * Guarantor: NATALEE DAVIS Account Type Relation to Patient Date of Phone Billing Address Personal/Family Care Teams Cable Driller Relationship Specialty Start Date End Date No, Physician PCP - General 02/19/19 [place] [address] [place] [id number] Internal Medicine 02/19/19
--- OUTSIDE RECORDS SUMMARY | 2025-01-13 00:55 | XMS_ITS | Data Portability ---
Author Organization [facility] [place] Address [address] [place] [address] Care Team Providers Care Enforcement Manager Name Role Phone KALEEBREE Primary Care Provider [...] Lab HbA1c (hemoglobin A1c), blood 2022 023 [facility] (Lab), [address] [facility], [place], [address], 3 04:54:14 Referral None recorded. Procedures None recorded. Surgeries None recorded. Imaging None recorded. Medication Orders phentermine 15 mg capsule 2022 023 [facility]/Pharmacy #[id number], [address], [place], [address], 3 11:04:04 topiramate 50 mg tablet [address]/Pharmacy #[id number], [address], [place], [address], 3 12:52:52 Patient TargetsNo targets recorded. Patient InstructionsNo instructions recorded. Reason for Referral None Reported. Results Created Date Observation Date Name Description Value Unit Range Abnormal Flag Note LastModifiedBy Organization Detail LastModifiedTime 01/08/20 23 01/07/2023 CT/GC (ALBIN) , SWAB chlamydia trachomatis, PCR Negati ve negati ve Not Available [facility] (Lab) [address] [facility] [facility], [place], [address], 01/08/2023 21:19:44 01/08/20 23 01/07/2023 CT/GC (ALBIN) , SWAB neisseria gonorrhoeae, PCR Negati ve negati ve Not Available [facility] (Lab) [address] [facility] [facility], [place], [address], 01/08/2023 21:19:44 01/08/20 23 01/07/2023 VAGIN ITIS/ VAGIN OSIS, DNA PROBE ligia sp. detection, direct probe Negati ve negati ve Not Available [facility] (Lab) [address] [place], [address], 01/08/2023 21:19:44 01/08/20 23 01/07/2023 VAGIN ITIS/ VAGIN OSIS, DNA PROBE gardnerella vag. detection, direct probe Positi ve negati ve abnormal Not Available [facility] (Lab) [address] [facility], [place], [address], 01/08/2023 21:19:44 01/08/20 23 01/07/2023 VAGIN ITIS/ VAGIN OSIS, DNA PROBE trichomonas vag. detection, direct probe Negati ve negati ve Not Available [facility] (Lab) [address] [place], [address], 01/08/2023 21:19:44 03/07/20 23 03/07/2023 HEMOG LOBIN [...] >8.0% Actio n sugge sted Not Available [facility] (Lab) [address], [place], [address], 03/08/2023 04:54:13 Result Notes None recorded. Procedures Surgical History Date Name Laterality Status Provider Name and Address Organization Details Recorded Time 0 procedure on foot completed [facility] 01/07/2023 17:31:18 8 excision of cyst of epididymis completed [facility] 01/07/2023 17:32:29 1 Carpal tunnel surgery completed [facility] 01/07/2023 17:30:23 0 Carpal tunnel surgery completed [facility] 01/07/2023 17:30:10 7 Colposcopy completed [facility] 01/07/2023 17:15:36 Other completed [facility] 03/05/2023 10:04:31 Imaging Results None recorded. Procedure Notes None recorded. Medical Equipment None Reported. Allergies Allergen ID Allergen Name Allergen Category Reaction Reaction Severity Criticality Documentation Date Start Date Code Code System Note Provider Name and Address Organization Details Recorded Time Product containin g penicilli n (product) medicatio n Not available Not available Not available 01/07/2023 56059 8001 SNOMED Gr[facility] 3 10:04:42 aspirin medicatio n Not available Not available Not available 01/07/2023 1191 RxNorm [facility] 3 10:04:46 84383 Jennifer Aspirin medicatio n nausea Not available Not available 03/05/2023 97925 8 RxNorm Gracie Pathak [facility] 3 10:03:47 76575 Penicilli n Not available Not available Not available Not available 03/05/2023 75852 RxNorm Gracie Pathak [facility] 3 10:03:47 Medications Name Sig Start [...] Updated DateTime 01/07/2023 160.02 cm 31.4 kg/m2 04106.85 g 130 mm[Hg] 88 mm[Hg] Awilda Raymond [facility] 3 17:07:09 Date Recorded Body height Body mass index (BMI) Body weight Systolic blood pressure Diastolic blood pressure Provider Name and Address Organization Details Last Updated DateTime 03/05/2023 160.02 cm 31.2 kg/m2 83548.26 g 119 mm[Hg] 74 mm[Hg] Gracie Pathak [facility] 3 10:15:34 Social History Question Answer Notes LastModified by Organizat ion Details LastModified Time Tobacco Smoking Status Current Every Day Smoker Gracie Zo [facility] 03/05/2023 10:05:52 What Is Your Level Of Alcohol Consumption? Occasional [email or web address] Information not available 01/07/2023 How Many Years Have You Consumed Alcohol? 20 Information not available 03/05/2023 Are You Blind Or Do You Have Difficulty Seeing? No [email or web address] Information not available 01/07/2023 What Is Your Level Of Caffeine Consumption? Moderate Information not available 03/05/2023 In The 14 Days Before Symptom Onset, Have You Had Close Contact With A Laboratory-confir med COVID-19 While That Case Was Ill? No [email or web address] Information not available 01/07/2023 In The 14 Days Before Symptom Onset, Have You Had Close Contact With A Person Who Is Under Investigation For COVID-19 While That Person Was Ill? No [email or web address] Information not available 01/07/2023 Have You Been To An Area Known To Be High Risk For COVID-19? No [email or web address] Information not available 01/07/2023 Are You Deaf Or Do You Have Serious Difficulty Hearing? No [email or web address] Information not available 01/07/2023 What Type Of Diet Are You Following? REGULAR Information not available 01/07/2023 Do You Or Have You Ever Used E-cigarettes Or Vape? Current User Of Electronic Cigarettes Vape, Daily Information not available 03/05/2023 What Is The Highest Grade Or Level Of School You Have Completed Or The Highest Degree You Have Received? 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 Yes Information not available 03/05/2023 Have You Ever Been Counseled For Unhealthy Alcohol Use? No Information not available 03/05/2023 Do You Use Protection During Sex? Usually Information not available 03/05/2023 Do You Use Your Seat Belt Or Car Seat Routinely? Yes [email or web address] Information not available 01/07/2023 Do You Have Smoke And Carbon Monoxide Detectors In Your Home? Yes [email or web address] Information not available 01/07/2023 Do You Feel Stressed (tense, Restless, Nervous, Or Anxious, Or Unable To Sleep At Night)? [id number] Information not available 03/05/2023 Do You Use Any Illicit Or Recreational Drugs? No [email or web address] Information not available 01/07/2023 Do You Use [...] by Organization Details LastModified Time Mother Asthma [email or web address] Not available 01/07/2023 17:22:32 Mother Anxiety disorder [email or web address] Not available 01/07 17:22:44 Mother Depressive disorder [email or web address] Not available 01/07 17:23:02 Mother Malignant neoplasm of ovary [email or web address] Not available 01/07 17:26:13 Mother Bipolar disorder Not available 2022 10:04:08 Mother Schizophreni a Not available 2022 10:04:08 Mother Mental disorder Not available 2022 10:04:08 Sister Asthma Not available 03/05/2023 10:04:08 Sister Anxiety disorder Not available 2022 10:04:08 Sister Depressive disorder Not available 2022 10:04:08 Sister Malignant neoplasm of ovary [email or web address] Not available 01/07 17:26:13 Sister Bipolar disorder Not available 2022 10:04:08 Sister Schizophreni a Not available 2022 10:04:08 Paternal Aunt Malignant neoplasm of lung [email or web address] Not available 01/07 17:26:59 Paternal Aunt Malignant tumor of breast [email or web address] Not available 01/07 17:27:29 Paternal Grandmother Malignant neoplasm of lung [email or web address] Not available 01/07 17:26:59 Paternal Grandmother Malignant tumor of breast Not available 01/07 17:27:29 Paternal Grandfather Depressive disorder Not available 2022 10:04:08 Medical History Condition Response Allergies (Food, seasonal, environmental ) Y Other N Breast Cancer N Drug/Latex Allergies/Reactions N Blood Transfusion N Dermatologic Disorders N Lung Disease N Defects or Inherited Disease N Breast Problem N Gestational Diabetes N Hematologic disorders N Anesthesia Complications N History of STI Y Deep Vein Thrombosis N Polycystic ovary syndrome N Anxiety Disorder Y Autoimmune disease N Arthritis N Infertility N Polyps N Acid Reflux (GERD) N History of abnormal pap Y Cancer N Stroke N Varicosities N Neurologic/Epilepsy N Endometriosis N High Cholesterol N Headaches Y Fibromyalgia N Kidney Disease N Heart Problems N Kidney or Bladder Problems N Thyroid Problems N GI Problems N Eating Disorder [...] SNOMED-CT Code Diagnosis ICD10 Code Diagnosis Note [id number] Awilda Raymond [place] [address] [address] 01/07/2023 16:03:36 01/07/2023 16:45:09 Vaginitis [id number] N76.0 Discussed use of mild soap like dove or ivory, cotton underwear w/out dye, hypoallerg enic detergent, wipe from front to back, avoid tub baths, keep perineum clean and dry, d/c use of baby wipes. Encouraged daily intake of yogurt or womens health probiotic. Internal and external affirm collected along with STD screen. [id number] Leon Hernandez MD [place] [address] [address] 03/05/2023 09:45:01 03/05/2023 13:07:19 Obesity 691194386 E66.9 This patient is a [id number] d female who presents for weight management [...] Valle Member ID Guarantor Name 01/07/2023 1 [facility]: (PPO) [id number] Davril E Hay [id number] Davril E Hay 03/05/2023 1 [facility]: (PPO) [id number] Davril E Hay [id number] Davril E Hay Notes Date Note Type Note Provider Name and Address Organization Details Recorded Time 01/07/2023 text/html Increased vagina l discharge x 2 weeks. Clear, no odor, itching, or irritation.Was seen in urgent care for GI but and was also treated with flagyl for discharge. Finished prescription a couple days ago.Sexually active. Awilda Raymond [facility], [facility] 01/07/2023 17:08:23 03/05/2023 text/html This patient [...] reasonable Leon Hernandez MD [address], [place], [address], [place] [facility] 03/05/2023 12:58:27 OBGyn Episode Ob Episode Information Episode Created Date Number of Fetuses Patient Bloodtype Patient rh Status Prepregnancy Weight lbs Domestic Partner Domestic Partner Phone Father Name Conche Loader And Unloader Status 01/08/20 23 1 CLOSED Fetus Data First Name Last Name Admitted to NICU Weight (g) Sex Living Outcome Pediatric Complications Fetus ID Race Codes Race Delivery Type 3259.96 5704 F Full Term 13094 Vaginal Delivery Chandler Calculation Initial Chandler Date Initial Exam Date Initial Exam Provider Initial Ultrasound Date Last Menstrual Period Date Ultra Sound Weeks Gestation 0 Eighteen To Twenty Week Chandler Update Ultra Sound Date Fundal Height At Umbil Quickening Date Ultra Sound Latest Weeks Gestation Final Cahndler Confirmed By Final Chandler Confirmed Date Final [...] Domestic Partner Domestic Partner Phone Father Name Conche Loader And Unloader Status 01/08/20 23 1 CLOSED Fetus Data First Name Last Name Admitted to NICU Weight (g) Sex Living Outcome Pediatric Complications Fetus ID Race Codes Race Delivery Type , Spontane ous 30589 Chandler Calculation Initial Chandler Date Initial Exam [...] Domestic Partner Domestic Partner Phone Father Name Conche Loader And Unloader Status 01/08/20 23 1 CLOSED Fetus Data First Name Last Name Admitted to NICU Weight (g) Sex Living Outcome Pediatric Complications Fetus ID Race Codes Race Delivery Type 3486.76 1704 M Full Term 28633 Vaginal Delivery Chandler Calculation Initial Chandler Date [...] Domestic Partner Domestic Partner Phone Father Name Conche Loader And Unloader Status 01/08/20 23 1 CLOSED Fetus Data First Name Last Name Admitted to NICU Weight (g) Sex Living Outcome Pediatric Complications Fetus ID Race Codes Race Delivery Type 3826.95 5704 M Full Term 45305 Vaginal Delivery Chandler Calculation Initial Chandler Date [...] Domestic Partner Domestic Partner Phone Father Name Conche Loader And Unloader Status 01/08/20 1 CLOSED Fetus Data First Name Last Name Admitted to NICU Weight (g) Sex Living Outcome Pediatric Complications Fetus ID Race Codes Race Delivery Type 4309.12 4 M Full Term [address]0713 Vaginal Delivery Chandler Calculation Initial Chandler Date [...] Domestic Partner Domestic Partner Phone Father Name Conche Loader And Unloader Status 01/08/20 23 1 CLOSED Fetus Data First Name Last Name Admitted to NICU Weight (g) Sex Living Outcome Pediatric Complications Fetus ID Race Codes Race Delivery Type 2806.37 3704 M Full Term 17304 Vaginal Delivery Chandler Calculation Initial Chandler Date [...] Domestic Partner Domestic Partner Phone Father Name Conche Loader And Unloader Status 01/08/20 23 1 CLOSED Fetus Data First Name Last Name Admitted to NICU Weight (g) Sex Living Outcome Pediatric Complications Fetus ID Race Codes Race Delivery Type 3515.33 8 M Full Term 35726 Vaginal Delivery Chandler Calculation Initial Chandler Date [...] Domestic Partner Domestic Partner Phone Father Name Conche Loader And Unloader Status 01/08/20 23 1 CLOSED Fetus Data First Name Last Name Admitted to NICU Weight (g) Sex Living Outcome Pediatric Complications Fetus ID Race Codes Race Delivery Type 2919.77 1704 M Full Term 89347 Vaginal Delivery Chandler Calculation Initial Chandler Date Initial Exam Date Initial Exam Provider Initial Ultrasound Date Last Menstrual Period Date Ultra Sound Weeks Gestation 0 Eighteen To Twenty Week Chandler Update Ultra Sound Date Fundal Height At Umbil Quickening Date Ultra Sound Latest Weeks Gestation Final Chandler Confirmed By Final Chandelr Confirmed Date Final Chandler Date Ultra Sound [...]
[2025-01-13 07:03] VITALS: BP 121/72; PULSE 79; RESP 18; TEMP 36.2; O2SAT 100; BMI 27.2
[2025-01-13] MEDS: LACTATED RINGERS 1,000 ML 150 ML IV CONT (07:38)
--- NOTE | 2025-01-13 07:46 | WPDANESEPPF ---
Anes - Initial Pre Proc Eval Procedure: Operation Date: 01/13/25 08:00 Proposed Procedures p Screening Colonoscopy - Fredo Arcos MD Date/Time: 01/13/25 07:46 Surgeon: Fredo Arcos MD Pre Op Diagnosis: malignant neoplasm of colon Patient Data Age: 44 Gender: F Height: 1.6 m Weight: 69.7 kg Last Vital Signs Temp 97.2 F L 01/13/25 07:03 Pulse 79 01/13/25 07:03 Resp 18 01/13/25 07:03 BP 121/72 01/13/25 07:03 Pulse Ox 100 01/13/25 07:03 O2 Del Method Room Air 01/13/25 07:03 Allergies Allergy/AdvReac Type Severity Reaction Status Date / Time aspirin Allergy Mild Nausea and Verified 01/13/25 07:02 Vomiting Penicillins Allergy Unknown UNKNOWN Verified 01/13/25 07:02 REACTION- OCCURED CHILD Home Medications ?Medication ?Instructions ?Recorded ?Confirmed ?Type ascorbic acid 125 mg-collagen, 1 cap PO DAILY 03/29/20 12/16/24 History hydrolyzed 740 mg capsule (Collagen Plus Vitamin C) multivitamin (Daily Multi-Vitamin 1 tablet PO DAILY 12/11/24 12/16/24 History tablet) oxycodone-acetaminophen 5 mg-325 1 tablet PO Q6H PRN pain #10 tabs 12/16/24 Rx mg tablet (Endocet) vits no.130-ferrous fum 1 tablet PO DAILY 12/30/24 01/13/25 History 27 mg iron-folic acid 800 mcg tablet ( Vitamin) Patient hx anesthesia problems: none Family hx anesthesia problems: none Results Review: All pre-operative results and documents have been reviewed as part of the pre-operative evaluation. [facility], [facility] Past Medical History Medical History Tear meniscus knee Acute pain of left knee Smoking history Depression Patella-femoral syndrome Hallux rigidus of right foot Anxiety Asthma Bilateral knee pain Chronic headaches Surgical History Surgical History History of carpal tunnel release Family History Family History Unknown Hypertension Arthritis Cancer Social History Social History Smoking packs per day: 2 Smoking cigarettes per day: 40.0 Years smoked: 26 Smoking pack-years: 52.00 Smoking status: Current every day smoker Tobacco type: e-cigarettes/vaping Additional smoking assessment comments: QUIT 1.5 YEARS AGO Alcohol intake: current Alcohol use details: Occasional Substance use type: marijuana Living arrangements: with family Spiritual care concerns: No Anes - Eval Final PreProcedure Day of Procedure 01/13/25 07:46 Patient weight: normal Heart: regular rate and rhythm Lungs: clear to auscultation Airway: Mallampati scale class II Neurological: alert and oriented Last oral intake: >/= 8 hours ASA classification: II Emergent: no Anesthetic plan: proceed Anesthesia type and monitoring: general GIVS and standard monitoring Results Review: All pre-operative results and documents have been reviewed as part of the pre-operative evaluation. Informed Consent: The patient's anesthetic plan and its attendant risks and benefits were discussed with the patient/family/POA. Questions were solicited and answers provided to the satisfaction of the patient/family/POA.
--- NOTE | 2025-01-13 08:03 | PM.IMHP ---
H&P: HPI History of Present Illness Date/Time: 01/13/25 08:03 Chief Complaint: Screening colonoscopy Narrative: This is the patient's first colonoscopy. There are no GI symptoms and there is no family history of colorectal cancer. Review of Systems Review of Systems: All systems reviewed & are unremarkable except as noted in HPI and below PMFSH Past Medical History Medical History Tear meniscus knee Acute pain of left knee Smoking history Depression Patella-femoral syndrome Hallux rigidus of right foot Anxiety Asthma Bilateral knee pain Chronic headaches Surgical History Surgical History History of carpal tunnel release Family History Family History Unknown Hypertension Arthritis Cancer Social History Social History Smoking packs per day: 2 Smoking cigarettes per day: 40.0 Years smoked: 26 Smoking pack-years: 52.00 Smoking status: Current every day smoker Tobacco type: e-cigarettes/vaping Additional smoking assessment comments: QUIT 1.5 YEARS AGO Alcohol intake: current Alcohol use details: Occasional Substance use type: marijuana Living arrangements: with family Spiritual care concerns: No Meds Home Medications and Allergies Home Medications ?Medication ?Instructions ?Recorded ?Confirmed ?Type ascorbic acid 125 mg-collagen, 1 cap PO DAILY 03/29/20 12/16/24 History hydrolyzed 740 mg capsule (Collagen Plus Vitamin C) multivitamin (Daily Multi-Vitamin 1 tablet PO DAILY 12/11/24 12/16/24 History tablet) oxycodone-acetaminophen 5 mg-325 1 tablet PO Q6H PRN pain #10 tabs 12/16/24 Rx mg tablet (Endocet) vits no.130-ferrous fum 1 tablet PO DAILY 12/30/24 01/13/25 History 27 mg iron-folic acid 800 mcg tablet ( Vitamin) Allergies Allergy/AdvReac Type Severity Reaction Status Date / Time aspirin Allergy Mild Nausea and Verified 01/13/25 07:02 Vomiting Penicillins Allergy Unknown UNKNOWN Verified 01/13/25 07:02 REACTION- OCCURED CHILD Vital Signs Vital Signs - 24 hr 01/13/25 07:03 Temperature 97.2 F L Pulse Rate 79 Respiratory Rate 18 Blood Pressure 121/72 Pulse Oximetry 100 Oxygen Delivery Room Air Exam Const: General: cooperative and healthy appearing Resp: Effort & Inspection: normal respiratory effort and able to speak in complete sentences Auscultation: clear to auscultation bilaterally Cardio: Rate: regular rate Rhythm: regular rhythm GI: Inspection: normal to inspection GI Palp: No No hepatosplenomegaly present Auscultation: normal bowel sounds Rectal Exam: deferred Skin: General skin exam: normal color Psych: Appearance: grossly normal Mental Status: mental status grossly normal Assessment and Plan Assessment and plan (1) Encounter for screening colonoscopy: Code(s): Z12.11 - Encounter for screening for malignant neoplasm of colon Status: Acute Assessment and Plan: The patient is deemed a good candidate for the procedure. Consent signed. Will proceed.
[2025-01-13 08:33] VITALS: BP 96/43; PULSE 77; RESP 21; O2SAT 96
[2025-01-13 08:36] LABS: BEDSIDEPREGUCG Negative (Negative)
[2025-01-13 08:43] VITALS: BP 94/50; PULSE 69; RESP 23; O2SAT 99
[2025-01-13 08:53] VITALS: BP 101/61; PULSE 66; RESP 16; O2SAT 100
== END 2025-01-13 09:04 | disposition home or self-care (01) ==
PROVIDERS: Referring Provider Obstetrics & Gynecology; Visit Provider Internal Medicine Gastroenterology
PROC: 0DJD8ZZ Inspection of Lower Intestinal Tract, Via Natural or Artificial Opening Endoscopic (ICD-10-PCS; CPT 45378; principal; 2025-01-13 08:00)
DX: Z12.11 Encounter for screening for malignant neoplasm of colon (principal); D12.5 Benign neoplasm of sigmoid colon; J45.909 Unspecified asthma, uncomplicated; R51.9 Headache, unspecified; F32.A Depression, unspecified; F41.9 Anxiety disorder, unspecified; F12.90 Cannabis use, unspecified, uncomplicated; Z79.891 Long term (current) use of opiate analgesic; Z98.890 Other specified postprocedural states; Z80.9 Family history of malignant neoplasm, unspecified
CPT/HCPCS: 45385; 88305; J2704; J7120

== ENCOUNTER 2025-04-13 16:07 | Outpatient (CLI) | payer BC, MEDICAID, SELFPAY ==
--- OUTSIDE RECORDS SUMMARY | 2025-04-13 16:14 | XMS_ITS | Referral Summary ---
Author Organization [facility] Phys[facility] Of [facility] [address] [place] [address] Care Team Providers Care Public Address System Operator Name Role Phone No, Physician Primary Care Provider [phone] Mariela Mercado MD Unavailable [phone] Allergies Active Allergy Reactions Criticality Noted Date Comments Aspirin Nausea only Low 03/31/2019 Codeine Itching Low 03/31/2019 Hydrocodone Itching Low 03/31/2019 severe Penicillins Unknown 03/31/2019 Hospitalized as a child Medications meloxicam (MOBIC) 7.5 mg tablet TAKE 1 TABLET TWICE DAY NEEDED FOR PAIN 11/23/2023 Active Active Problems Problem Noted Date Diagnosed Date Multinodular goiter 12/10/2023 Assessment & Plan (08/17/2024 11:54 AM BEHAVIORAL HEALTH TECH): Performed a follow-up thyroid ultrasound in office [...] (03/18/2019): Added automatically from request for surgery [id number] Cyst of skin 03/18/2019 Overview (03/18/2019): Added automatically from request for surgery [id number] Immunizations Immunization Administration Dates Next Due Tdap [...] Comments Blood Pressure 120/84 08/17/2024 10:19 AM BEHAVIORAL HEALTH TECH Pulse 82 08/17/2024 10:19 AM BEHAVIORAL HEALTH TECH Temperature 36.3 C (97.4 F) 03/31/2019 8:28 AM CDT Respiratory Rate 16 08/17/2024 10:19 AM BEHAVIORAL HEALTH TECH Oxygen Saturation 97% 03/31/2019 9:00 AM CDT Inhaled Oxygen Concentration - - Weight 84.8 kg (187 lb) 08/17/2024 10:19 AM BEHAVIORAL HEALTH TECH Height 160 cm (5' 3) 08/17/2024 10:19 AM BEHAVIORAL HEALTH TECH Body Mass Index 33.13 08/17/2024 10:19 AM BEHAVIORAL HEALTH TECH Plan of Treatment Not on file Procedures [...] GENERAL ORD ERABLES Final Result [facility] [id number] [place] [address] from Last 3 Months or Most Recently Relevant to Health Maintenance Insurance ANTH ACCESS [facility] CHOICE OOS * Guarantor: NATALEE DAVIS Account Type Relation to Patient Date of Phone Billing Address Personal/Family Care Teams Public Address System Operator Relationship Specialty Start Date End Date No, Physician PCP - General 02/19/19 Mariela Mercado MD [address] [place] [address] Internal Medicine 02/19/19
--- OUTSIDE RECORDS SUMMARY | 2025-04-13 16:14 | XMS_ITS | Clinical Summary ---
Author Organization [facility] Physician Of [facility] [address] [place] [id number] Care Team Providers Care Software Packaging Engineer Name Role Phone No, Physician Primary Care Provider [phone] Mariela Mercado MD Unavailable [phone] Allergies Active Allergy Reactions Criticality Noted Date Comments Aspirin Nausea only Low 03/31/2019 Codeine Itching Low 03/31/2019 Hydrocodone Itching Low 03/31/2019 severe Penicillins Unknown 03/31/2019 Hospitalized as a child Medications meloxicam (MOBIC) 7.5 mg tablet TAKE 1 TABLET TWICE DAY NEEDED FOR PAIN 11/23/2023 Active Active Problems Problem Noted Date Diagnosed Date Multinodular goiter 12/10/2023 Assessment & Plan (08/17/2024 11:54 AM RESEARCH ASSOCIATE MOLECULAR BIOLOGY): Performed a follow-up thyroid ultrasound in office [...] (03/18/2019): Added automatically from request for surgery [id number] Cyst of skin 03/18/2019 Overview (03/18/2019): Added automatically from request for surgery [id number] Immunizations Immunization Administration Dates Next Due Tdap [...] Comments Blood Pressure 120/84 08/17/2024 10:19 AM RESEARCH ASSOCIATE MOLECULAR BIOLOGY Pulse 82 08/17/2024 10:19 AM RESEARCH ASSOCIATE MOLECULAR BIOLOGY Temperature 36.3 C (97.4 F) 03/31/2019 8:28 AM CDT Respiratory Rate 16 08/17/2024 10:19 AM RESEARCH ASSOCIATE MOLECULAR BIOLOGY Oxygen Saturation 97% 03/31/2019 9:00 AM CDT Inhaled Oxygen Concentration - - Weight 84.8 kg (187 lb) 08/17/2024 10:19 AM RESEARCH ASSOCIATE MOLECULAR BIOLOGY Height 160 cm (5' 3) 08/17/2024 10:19 AM RESEARCH ASSOCIATE MOLECULAR BIOLOGY Body Mass Index 33.13 08/17/2024 10:19 AM RESEARCH ASSOCIATE MOLECULAR BIOLOGY Plan of Treatment Health Maintenance Due Date Last Done Comments Breast Cancer Screening-Mammogram 1978 Cervical Cancer Screening 1978 Colon Cancer Screening-Colonoscopy 1978 Depression Screening 1978 Hepatitis B Screening 1996 Regular Well Visit/Exam 18-64 1996 Pneumococcal vaccine <65 (1 of 2 - PCV) 1997 DTaP/Tdap/Td Vaccine (2 - Td or Tdap) 05/05/2025 05/05/2015 Influenza Vaccine (#1) 2025 Hepatitis C Screening Completed 03/31/2019 HPV [...] GENERAL ORD ERABLES Final Result [facility] [id number] Department [place] [address] from Last 3 Months or Most Recently Relevant to Health Maintenance Insurance ACCESS BLUE [employer] CHOICE OOS * Guarantor: NATALEE DAVIS Account Type Relation to Patient Date of Phone Billing Address Personal/Family Care Teams Software Packaging Engineer Relationship Specialty Start Date End Date No, Physician PCP - General 02/19/19 [place] [address] [place] [id number] Internal Medicine 02/19/19
--- OUTSIDE RECORDS SUMMARY | 2025-04-13 16:14 | XMS_ITS | Continuity of Care Document ---
Author Organization [facility] Address [address] [place] [address] Phone Care Team Providers Care Health And Social Care Teacher Name Role Phone Unavailable Unavailable Unavailable Allergies, Adverse Reactions, Alerts Substance Reaction Status Criticality amoxicillin Active No Information aspirin Active No Information Penicillins Active No Information Medications Medication Instructions Dosage Effective Dates (start - stop) Status Comments Centrum Silver Ultra Women's tablet take 1 tablet by mouth daily. - Active [Pat Resp = 0 pct;] Advance Directives Directive Yes / No Effective Date File Name No Information Encounters Encounter Description Practice Location Reason(s) For Visit Diagnoses Date Provider [facility], [address], [place], [place], [id number] , tel:[phone] [facility] No Information 6 No Information [facility], [address], [place], [place], [id number] , tel:[phone] [facility] Musculoskeletal pain (chief complaint) Pain in left finger 6 No Information [facility], [address], [place], [place], [id number] , [place] tel:[phone] [facility] discuss test results (chief complaint) Papanicolaou smear of cervix with atypical squamous cells of undetermined significance (ASC-US)Vaginitis 3 No Information [facility], [address], [place], [place], [id number] , [place] tel:[phone] [facility] PAP test (chief complaint) Gynecological ExaminationScreening examination for venereal disease Apr-1 8-201 3 No Information [facility], [address], [place], [id number] , [place] tel:[phone] [facility] iud remove (chief complaint) Irregular menstrual cycleRemoval of intrauterine contraceptive device 3 No Information Family History Family Member Type Diagnosis Age At Onset Mother Problem (finding) back surgery x3 Father Problem (finding) Alive and well Sister Problem (finding) manic-depressive state Mother Problem (finding) malignant neoplasm of c ervix uteri Payers Payer name Insurance type Covered libertarian ID Authoriza tion(s) No Information Social History Type Description Quantity Date Captured Comments Sex Female Smoking Status No Information Chief Complaint And Reason For Visit No Information Plan Of Treatment Date Type Action Status Referral Ordered: Radiologic Examination, hand, 2 Views Left hand ordered Future Order: Radiology Order Ra diologic Examination, hand, 2 Views Left hand ([id number]), Sent on: Sent History Of Present Illness Encounter Date Complaint History Of Prese nt Illness Musculoskeletal pain Onset: 4 da ys ago. Duration: more than 1 hour. Severity level is 7. It occurs constantly and is stable. Location: left hand (ring finger). There is no radiation. The pain is aching. Context: there is an injury. Trauma type: fall, occurred at home, 4 Days ago on 04/27/2016. The pain is aggravated by movement. The pain is relieved by brace/splint. Associated symptoms include decreased mobility, joint instability, joint tenderness, swelling and weakness. Pertinent negatives include bruising, difficulty initiating sleep, locking, nocturnal awakening, nocturnal pain, numbness, popping, spasms and tingling in the arms. Hand Dominance: right. discuss test results discuss test results (comments) Pt with h/o abnl pap smear. PAP test Currently pregna nt: no. : 5. Parity: Term: 5. Livin. Patient is not contemplating . The patient states she uses none for control. Last LMP was 11/29/2012. Her menses is irregular with normal flow. Negative for dysmenorrhea and menorrhagia. Negative for: breast discharge, breast lump(s) and breast pain. Positive for: breast self exam. Menopausal symptoms negative for: hot flashes, insomnia, night sweats and vaginal dryness. Associated symptoms include abnormal bleeding. Pertinent negatives include anxiety, depression, sexual dysfunction, sleep disturbances, urinary incontinence, urinary urgency, vaginal discharge and vaginal itching. She does not take calcium. She does take multivitamins. Additional information: One sexual partner past 12 months. She requests STD screen. She missed menses in Oct 2012 and had positive UPT. She then had heavy menses with clots in November 2012. She was seen at [facility] and was told that she had a spontaneous . She declines iud remove The symptoms beg an 5 years ago. pt state she want IUD removed. She has not had menses since use of IUD. She declines contraception at this time. Instructions Date Instruction Additional Infor humble safety precautions Related to Pa in in left finger Assessments Type Assessment Date No Information
[2025-04-13 17:24] LABS: Hematocrit 41.9 % (37.0-47.0); Hemoglobin 13.4 g/dL (12.0-15.0); Immature Granulocyte Percent A 0.4 % (0-0.5); Lymphocytes Absolute Auto 1.74 K/mm3 (0.9-3.2); Mean Corpuscular HGB Conc 32.0 g/dl (32-36); Mean Corpuscular Hemoglobin 31.5 pg (26-34); Mean Corpuscular Volume 98.4 fl (80-100); Nucleated Red Blood Cells Absolute Auto 0.000 K/mm3 (0.0-0.012); Nucleated Red Blood Cells Perc 0.0 % (0.0-0.2); Platelet Count Result 262 k/mm3 (150-375); Red Blood Count 4.26 M/mm3 (4.2-5.4); White Blood Count 8.0 K/mm3 (4.5-10.0)
[2025-04-13 17:42] LABS: Alanine Aminotransferase 17 U/L (6-35); Albumin Level 4.3 g/dL (3.5-5.1); Alkaline Phosphatase 46 U/L (38-126); Anion Gap 6 mmol/L (4-12); Aspartate Amino Transferase 25 U/L (14-36); Bilirubin,Total 1.0 mg/dL (0.2-1.3); Blood Urea Nitrogen 12 mg/dL (7-17); Calcium 9.4 mg/dL (8.4-10.2); Carbon Dioxide 29 mmol/L (22-30); Chloride 105 mmol/L (98-107); Estimated Glomerular Filt Rate > 60; Glucose 77 mg/dL (65-110); Potassium 3.7 mmol/L (3.4-5.0); Sodium 140 mmol/L (137-145); Total Protein 7.5 g/dL (6.3-8.2)
== END 2025-04-13 16:08 | disposition home or self-care (01) ==
LOC: ANHLAB 16:12
PROVIDERS: Visit Provider Obstetrics & Gynecology
DX: R10.11 Right upper quadrant pain (principal)
CPT/HCPCS: 36415; 80053; 85025

== ENCOUNTER 2025-04-19 13:40 | Outpatient (CLI) | payer BC, MEDICAID, SELFPAY ==
--- NOTE | ~2025-04-19 | US_ITS ---
Limited Abdominal Sonogram: Real-time sonographic imaging of the right upper quadrant was performed. Clinical History: Right upper quadrant pain Findings: The liver appears normal with no evidence of mass lesion or bile duct dilatation. Main por jordi vein demonstrates normal direction of flow. The gallbladder is well distended, and appears normal with no evidence of gallstone or wall thickening. The common bile duct measures 3 mm. The visualize d pancreas, aorta, and IVC are unremarkable. Impression: No significant abnormality seen. Reviewed, dictated and finalized at location M. Impression: No significant abnormality seen.
== END 2025-04-19 13:41 | disposition home or self-care (01) ==
LOC: MICIMG 13:41
PROVIDERS: PCP Obstetrics & Gynecology; Visit Provider Obstetrics & Gynecology
DX: R10.11 Right upper quadrant pain (principal)
CPT/HCPCS: 76705

== ENCOUNTER 2025-04-28 11:45 | Outpatient (CLI) | payer BC, MEDICAID, SELFPAY ==
--- OUTSIDE RECORDS SUMMARY | 2025-04-28 11:48 | XMS_ITS | Clinical Summary ---
Author Organization [facility] Physician Of [facility] [address] [place] [id number] Care Team Providers Care Senior Dynamics Crm Developer Name Role Phone No, Physician Primary Care Provider [phone] Mariela Mercado MD Unavailable [phone] Allergies Active Allergy Reactions Criticality Noted Date Comments Aspirin Nausea only Low 03/31/2019 Codeine Itching Low 03/31/2019 Hydrocodone Itching Low 03/31/2019 severe Penicillins Unknown 03/31/2019 Hospitalized as a child Medications meloxicam (MOBIC) 7.5 mg tablet TAKE 1 TABLET TWICE DAY NEEDED FOR PAIN 11/23/2023 Active Active Problems Problem Noted Date Diagnosed Date Multinodular goiter 12/10/2023 Assessment & Plan (08/17/2024 11:54 AM GEOPHYSICAL LABORATORY CHIEF): Performed a follow-up thyroid ultrasound in office [...] (03/18/2019): Added automatically from request for surgery [id number] Cyst of skin 03/18/2019 Overview (03/18/2019): Added automatically from request for surgery [id number] Immunizations Immunization Administration Dates Next Due Tdap [...] Comments Blood Pressure 120/84 08/17/2024 10:19 AM GEOPHYSICAL LABORATORY CHIEF Pulse 82 08/17/2024 10:19 AM GEOPHYSICAL LABORATORY CHIEF Temperature 36.3 C (97.4 F) 03/31/2019 8:28 AM CDT Respiratory Rate 16 08/17/2024 10:19 AM GEOPHYSICAL LABORATORY CHIEF Oxygen Saturation 97% 03/31/2019 9:00 AM CDT Inhaled Oxygen Concentration - - Weight 84.8 kg (187 lb) 08/17/2024 10:19 AM GEOPHYSICAL LABORATORY CHIEF Height 160 cm (5' 3) 08/17/2024 10:19 AM GEOPHYSICAL LABORATORY CHIEF Body Mass Index 33.13 08/17/2024 10:19 AM GEOPHYSICAL LABORATORY CHIEF Plan of Treatment Health Maintenance Due Date [...] GENERAL ORD ERABLES Final Result [facility] [id number] [address] Department [place] [address] from Last 3 Months or Most Recently Relevant to Health Maintenance Insurance ACCESS BLUE ACC CHOICE OOS * Guarantor: NATALEE DAVIS Account Type Relation to Patient Date of Phone Billing Address Personal/Family Care Teams Senior Dynamics Crm Developer Relationship Specialty Start Date End Date No, Physician PCP - General 02/19/19 [place] [address] [place] [id number] Internal Medicine 02/19/19
== END 2025-04-28 11:46 | disposition home or self-care (01) ==
LOC: ANHLAB 11:47
PROVIDERS: PCP Obstetrics & Gynecology; Visit Provider Obstetrics & Gynecology
DX: N97.0 Female infertility associated with anovulation (principal)
CPT/HCPCS: 84144